=== PATIENT | male | born 1940 | race Two or more races ===

== ENCOUNTER 2018-07-20 12:14 | Inpatient (IN) | payer MEDICARE, OTHER ==
[2018-07-20] MEDS ORDERED: IPRATROPIUM/ALBUTEROL 0.5-2.5 MG/3 ML AMPUL NEB ONE (13:09)
--- NOTE | 2018-07-20 13:10 | ER Document Report ---
ED Medical Screen (RME) - General Chief Complaint: Cough Stated Complaint: COUGH Time Seen by Provider: 07/20/18 12:55 Primary Care Provider: KHADRA KNAPP MD [Primary Care Provider] - Follow up as needed Notes: Patient is a 77-year-old male that presents to the emergency department for chief complaint of shortness of breath and productive cough. Patient reports having symptoms for approximately 10 days, was seen a primary care office today and they advised him to come to the ED today.. ROS: Other than noted above, the 12 point review of systems was reviewed with the patient and were negative, all pertinent findings are included in the HPI. PHYSICAL EXAMINATION: Vital signs reviewed. GENERAL: Elderly male, mild increased work of breathing HEAD: Atraumatic, normocephalic. EYES: Pupils equal round extraocular movements intact, conjunctiva are normal. ENT: Nares patent NECK: Normal range of motion CV: Heart regular rate and rhythm LUNGS: Mild increased work of breathing, slight expiratory wheezing noted Musculoskeletal: Normal range of motion NEUROLOGICAL: Normal speech PSYCH: Normal mood, normal affect. MDM: Patient seen and examined for rapid initial assessment. Vital signs reviewed. A comprehensive ED assessment and evaluation of the patient, analysis of test results and completion of the medical decision making process will be conducted by additional ED providers. *Note is created using voice recognition software and may contain spelling, syntax or grammatical errors. TRAVEL OUTSIDE OF THE [place] IN LAST 30 DAYS: No - Related Data Allergies/Adverse Reactions: No Known Allergies Allergy (Verified 07/20/18 12:16) Past Medical History - Immunizations Hx Diphtheria, Pertussis, Tetanus Vaccination: No History of Influenza Vaccine for 03/2017 - 08/2017 Season: Refused Physical Exam - Vital signs Vitals: Temp Pulse Resp BP Pulse Ox 98.6 F 101 H 20 132/71 H 84 L 07/20/18 12:46 07/20/18 12:46 07/20/18 12:46 07/20/18 12:46 07/20/18 12:46 Course - Vital Signs Vital signs: Temp Pulse Resp BP Pulse Ox 98.6 F 101 H 20 132/71 H 84 L 07/20/18 12:46 07/20/18 12:46 07/20/18 12:46 07/20/18 12:46 02/06/19 12:46 Doctor's Discharge - Discharge Referrals: KHADRA KNAPP MD [Primary Care Provider] - Follow up as needed
--- NOTE | 2018-07-20 13:52 | RADIOLOGY REPORT (SQ) ---
EXAM DESCRIPTION: CHEST SINGLE VIEW COMPLETED DATE/TIME: 07/20/2018 1:38 pm REASON FOR STUDY: shortness of breath COMPARISON: None. EXAM PARAMETERS: NUMBER OF VIEWS: One view. TECHNIQUE: Single frontal radiographic view of the chest acquired. RADIATION DOSE: NA LIMITATIONS: None. FINDINGS: LUNGS AND PLEURA: Right perihilar parenchymal opacity. Slightly spiculated. Left lung is clear. MEDIASTINUM AND HILAR STRUCTURES: No masses. Contour normal. HEART AND VASCULAR STRUCTURES: Heart normal in size. Normal vasculature. BONES: No acute findings. HARDWARE: None in the chest. OTHER: No other significant finding. IMPRESSION: Right lung pneumonia versus mass. TECHNICAL DOCUMENTATION: JOB ID: [id number] [employer]- All Rights Reserved Reading location - IP/workstation name: [email or web address]
[2018-07-20] MEDS ORDERED: CEFTRIAXONE INJ 1000 MG VIAL IV ONE (13:56)
[2018-07-20] MEDS ORDERED: AZITHROMYCIN INJ 500 MG VIAL IV ONE (13:56)
[2018-07-20 14:07] LABS: HEMATOCRIT 28.1 % (37.9-51.0); MEAN CORPUSCULAR HEMOGLOBIN 33.9 pg (27.0-33.4); MEAN CORPUSCULAR HGB CONC 31.9 g/dL (32.0-36.0); MEAN CORPUSCULAR VOLUME 107 fl (80-97); RED BLOOD COUNT 2.64 10^6/uL (4.35-5.55); RED CELL DISTRIBUTION WIDTH 18.3 % (11.5-14.0); WHITE BLOOD COUNT 20.4 10^3/uL (4.0-10.5)
[2018-07-20 14:19] LABS: PLATELET COUNT 1104 10^3/uL (150-450)
[2018-07-20 14:28] LABS: ALANINE AMINOTRANSFERASE 12 U/L (21-72); ALBUMIN 4.1 g/dL (3.5-5.0); ALKALINE PHOSPHATASE 95 U/L (38-126); ANION GAP 11 (5-19); ASPARTATE AMINO TRANSFERASE 24 U/L (17-59); BILIRUBIN,DIRECT 0.4 mg/dL (0.0-0.4); BILIRUBIN,TOTAL 0.6 mg/dL (0.2-1.3); BLOOD UREA NITROGEN 18 mg/dL (7-20); CALCIUM 9.1 mg/dL (8.4-10.2); CARBON DIOXIDE 31 mmol/L (22-30); CHLORIDE 95 mmol/L (98-107); GLUCOSE 103 mg/dL (75-110); POTASSIUM 5.2 mmol/L (3.6-5.0); SODIUM 136.7 mmol/L (137-145); TOTAL PROTEIN 6.9 g/dL (6.3-8.2)
--- NOTE | 2018-07-20 14:39 | ER Document Report ---
ED General - General Chief Complaint: Cough Stated Complaint: COUGH Time Seen by Provider: 07/20/18 12:55 Primary Care Provider: KHADRA KNAPP MD [Primary Care Provider] - Follow up as needed TRAVEL OUTSIDE OF THE [place] IN LAST 30 DAYS: No - HPI Notes: Patient is a 77-year-old male that presents to the emergency department for chief complaint of cough and shortness of breath. Patient reports productive cough over the last week. He reports some mild associated nausea but denies any emesis or abdominal pain. He denies fevers or chills. He is up-to-date on his influenza vaccine. He states that he has 2 family members at home who are also congested and coughing. Patient denies any chest pain. He denies any home medications for his symptoms. Patient sees Dr. Vale for elevated platelet counts and denies history of cancer. Past Medical History: Thrombocytosis Past Surgical History: Reviewed in chart Social History: Daily tobacco. Denies drug and alcohol. Family History: Reviewed and noncontributory for presenting illness Allergies: Reviewed, see documented allergy list. REVIEW OF SYSTEMS: CONSTITUTIONAL : No fever No chills No diaphoresis No recent illness EENT: No vision changes congestion No sore throat CARDIOVASCULAR: No chest pain No palpitations RESPIRATORY: shortness of breath cough difficulty breathing GASTROINTESTINAL: No abdominal pain No nausea No vomiting No diarrhea GENITOURINARY: No dysuria No hematuria No difficulty urinating MUSCULOSKELETAL: No back pain No leg pain No arm pain SKIN: No rashes No lesions LYMPHATIC: No swollen, enlarged glands. NEUROLOGICAL: No lightheadedness No headache No weakness No paresthesias PSYCHIATRIC: No anxiety No depression PHYSICAL EXAMINATION: Vital signs reviewed, nursing noted reviewed. GENERAL: Well-appearing, well-nourished and in no acute distress. HEAD: Atraumatic, normocephalic. EYES: Eyes appear normal, extraocular movements intact, sclera anicteric, conjunctiva are normal. ENT: nares patent, oropharynx clear without exudates. Mildly dry mucous membranes. NECK: Normal range of motion, supple without lymphadenopathy LUNGS: Mild decreased lung sounds on the right compared to left. Mild tachypnea. No accessory muscle use or respiratory distress. HEART: Tachycardic rate and regular rhythm without murmurs ABDOMEN: Soft, nontender, normoactive bowel sounds. No rebound, guarding, or rigidity. No masses appreciated. EXTREMITIES: Nontender, good range of motion, no pitting or edema. NEUROLOGICAL: No focal neurological deficits. Moves all extremities spontaneously Motor and sensory grossly intact on exam. PSYCH: Normal mood, normal affect. SKIN: Warm, Dry, normal turgor, no rashes or lesions noted on exposed skin - Related Data Allergies/Adverse Reactions: No Known Allergies Allergy (Verified 07/20/18 12:16) Past Medical History - Social History Smoking Status: Current Every Day Smoker Frequency of alcohol use: None Drug Abuse: None Family History: Reviewed & Not Pertinent Patient has suicidal ideation: No Patient has homicidal ideation: No Renal/ Medical History: Denies: Hx Peritoneal Dialysis Past Surgical History: Reports: Hx Abdominal Surgery - hernia - Immunizations Hx Diphtheria, Pertussis, Tetanus Vaccination: No Physical Exam - Vital signs Vitals: Temp Pulse Resp BP Pulse Ox 98.6 F 101 H 20 132/71 H 84 L 07/20/18 12:46 07/20/18 12:46 07/20/18 12:46 07/20/18 12:46 07/20/18 12:46 Course - Re-evaluation Re-evalutation: 07/20/18 14:40 Vitals reviewed. Nursing notes reviewed. Patient was 84% on room air and placed on nasal cannula oxygen. He is oxygenating well on 2 L nasal cannula currently. He is in no acute respiratory distress. Chest x-ray shows right- sided pneumonia versus mass. Patient is symptomatic of pneumonia with a leukocytosis consistent with sepsis. He will be started on Rocephin and azithromycin. Patient given IV hydration. He will be admitted to the hospital for his pneumonia and oxygen requirement. Laboratory 07/20/18 07/20/18 13:46 13:46 WBC 20.4 H RBC 2.64 L Hgb 9.0 L Hct 28.1 L MCV 107 H MCH 33.9 H MCHC 31.9 L RDW 18.3 H Plt Count 1104 H* Seg Neutrophils % Not Reportable Lymphocytes % Not Reportable Monocytes % Not Reportable Eosinophils % Not Reportable Basophils % Not Reportable Absolute Neutrophils Not Reportable Absolute Lymphocytes Not Reportable Absolute Monocytes Not Reportable Absolute Eosinophils Not Reportable Absolute Basophils Not Reportable Sodium 136.7 L Potassium 5.2 H Chloride 95 L Carbon Dioxide 31 H Anion Gap 11 BUN 18 Creatinine 0.80 Est GFR ( Amer) > 60 Est GFR (Non-Af Amer) > 60 Glucose 103 Calcium 9.1 Total Bilirubin 0.6 Direct Bilirubin 0.4 Neonat Total Bilirubin Not Reportable Neonat Direct Bilirubin Not Reportable Neonat Indirect Bili Not Reportable AST 24 ALT 12 L Alkaline Phosphatase 95 Total Protein 6.9 Albumin 4.1 Chest X-Ray 07/20/18 13:09 IMPRESSION: Right lung pneumonia versus mass. 07/20/18 15:23 Patient's lab work shows a thrombocytosis which is higher than previous on record. This is what he has been seeing him on 4. He also has a leukocytosis and is meeting sepsis criteria. Patient has a normal lactate with no endorgan damage and is not in shock. Patient in agreement with admission. Case discussed with Alexsandra Guerrero THERMODYNAMICIST who accepts admission. - Vital Signs Vital signs: Temp Pulse Resp BP Pulse Ox 98.6 F 95 15 141/60 H 93 07/20/18 12:46 07/20/18 13:46 07/20/18 13:46 07/20/18 13:46 07/20/18 13:46 - Laboratory Result Diagrams: 07/20/18 13:46 07/20/18 13:46 Laboratory results interpreted by me: 07/20/18 07/20/18 13:46 13:46 WBC 20.4 H RBC 2.64 L Hgb 9.0 L Hct 28.1 L MCV 107 H MCH 33.9 H MCHC 31.9 L RDW 18.3 H Plt Count 1104 H* Seg Neuts % (Manual) 86 H Band Neutrophils % 1 L Lymphocytes % (Manual) 4 L Abs Neuts (Manual) 17.7 H Sodium 136.7 L Potassium 5.2 H Chloride 95 L Carbon Dioxide 31 H ALT 12 L - EKG Interpretation by Me Additional EKG results interpreted by me: 07/20/18 15:22 Interpreted by myself 06/17/2004: Sinus tachycardia, rate 106, normal axis, no ectopy, no STEMI Discharge - Discharge Clinical Impression: Thrombocytosis, Hypoxia Pneumonia Qualifiers: Pneumonia type: due to unspecified organism Laterality: right Lung location: middle lobe of lung Qualified Code(s): J18.1 - Lobar pneumonia, unspecified organism Sepsis Qualifiers: Sepsis type: sepsis due to unspecified organism Qualified Code(s): A41.9 - Sepsis, unspecified organism Condition: Stable Disposition: ADMITTED INPATIENT Admitting Provider: Hospitalist Unit Admitted: Telemetry Referrals: KHADRA KNAPP MD [Primary Care Provider] - Follow up as needed
[2018-07-20 14:40] LABS: ABSOLUTE LYMPHOCYTES# (MANUAL) 0.8 10^3/uL (0.5-4.7); ABSOLUTE NEUTROPHILS# (MANUAL) 17.7 10^3/uL (1.7-8.2); BAND NEUTROPHILS % (MANUAL) 1 % (3-5); BASOPHILS % (MANUAL) 1 % (0-2); EOSINOPHILS % (MANUAL) 3 % (0-6); LYMPHOCYTES % (MANUAL) 4 % (13-45); MONOCYTES % (MANUAL) 5 % (3-13); SEGMENTED NEUTROPHILS % (MAN) 86 % (42-78); TOTAL CELLS COUNTED 100
[2018-07-20 14:41] LABS: ANISOCYTOSIS 2+; OVALOCYTES 1+; PLATELET COMMENT INCREASED; POIKILOCYTOSIS 1+; POLYCHROMASIA SLIGHT
[2018-07-20] MEDS ORDERED: ONDANSETRON 4 MG TAB.RAPDIS PO PRN (16:07)
--- NOTE | 2018-07-20 16:36 | PDOC H&P ---
History of Present Illness Admission Date/PCP: 07/20/18 15:57 KHADRA KNAPP MD Patient complains of: COUGH & SOB History of Present Illness: MIRELA XIE is a 77 year old male with a PMH of thrombocytosis (followed by Dr. Mir), chronic back pain and DJD. Who presented to [facility] with a productive cough and SOB x 4 days. The patient denies any recent ill contacts. States he took Mucinex and Aleve for symptoms, but they offered no relief. Patient's daughter urged him to come to the emergency department today. Upon arrival to the emergency department she is vital signs were BP 132/71 HR 101 T 98.6 SPO2 84% RA. CXR reveals RML infiltrate. Laboratory studies indicative of leukocytosis (WBC 20), mild anemia and significant thrombocytosis (platelets >1100). Additionally, there is mild hyponatremia and hyperkalemia. All other laboratory studies relatively benign, including cardiac enzymes. EKG demonstrates sinus tachycardia. Upon assessment, the patient is resting comfortably in bed on supplemental oxygen. He is alert and oriented, able to answer all questions appropriately and without pause. Wheezing can be auscultated in all lung cedillo bilaterally. There is no evidence of central or peripheral cyanosis. Plan to admit to hospitalist service for IV antibiotic therapy. Past Medical History Musculoskeltal Medical History: Reports: Other - CHRONIC BACK PAIN. DJD. Hematology: Reports: Anemia Past Surgical History Past Surgical History: Reports: None Social History Information Source: Patient Lives with: Family Smoking Status: Current Every Day Smoker Cigarettes Packs Per Day: 1 Frequency of Alcohol Use: None Hx Recreational Drug Use: No Drugs: None Hx Prescription Drug Abuse: No - Advance Directive Resuscitation Status: Full Code Family History Family History: Reviewed & Not Pertinent Parental Family History Reviewed: Yes Children Family History Reviewed: Yes Sibling(s) Family History Reviewed.: Yes Medication/Allergy Home Medications: Naproxen Sodium [Aleve] 1 cap PO Q6 PRN 10/28/17 Allergies/Adverse Reactions: No Known Allergies Allergy (Verified 07/20/18 12:16) Review of Systems All systems: reviewed and no additional remarkable complaints except as stated Physical Exam Vital Signs: Temp Pulse Resp BP Pulse Ox 98.6 F 95 15 141/60 H 93 07/20/18 12:46 07/20/18 13:46 07/20/18 13:46 07/20/18 13:46 07/20/18 13:46 Intake & Output 07/19/18 07/20/18 07/21/18 06:59 06:59 06:59 Weight 51.5 kg General appearance: PRESENT: thin Eye exam: PRESENT: PERRLA, scleral icterus Mouth exam: PRESENT: moist, tongue midline Teeth exam: PRESENT: poor dentation Neck exam: PRESENT: full ROM Respiratory exam: PRESENT: symmetrical, unlabored, wheezes Cardiovascular exam: PRESENT: +S1, +S2 GI/Abdominal exam: PRESENT: soft. ABSENT: distended Rectal exam: PRESENT: deferred Extremities exam: PRESENT: full ROM Musculoskeletal exam: PRESENT: ambulatory, full ROM Neurological exam: PRESENT: alert, awake, oriented to person, oriented to place, oriented to time, oriented to situation Skin exam: PRESENT: dry, intact Results Laboratory Results: 07/20/18 13:46 07/20/18 13:46 07/20/18 07/20/18 07/20/18 13:46 13:46 14:15 WBC 20.4 H RBC 2.64 L Hgb 9.0 L Hct 28.1 L MCV 107 H MCH 33.9 H MCHC 31.9 L RDW 18.3 H Plt Count 1104 H* Seg Neutrophils % Not Reportable Lymphocytes % Not Reportable Monocytes % Not Reportable Eosinophils % Not Reportable Basophils % Not Reportable Absolute Neutrophils Not Reportable Absolute Lymphocytes Not Reportable Absolute Monocytes Not Reportable Absolute Eosinophils Not Reportable Absolute Basophils Not Reportable Sodium 136.7 L Potassium 5.2 H Chloride 95 L Carbon Dioxide 31 H Anion Gap 11 BUN 18 Creatinine 0.80 Est GFR ( Amer) > 60 Est GFR (Non-Af Amer) > 60 Glucose 103 Lactic Acid 0.8 Calcium 9.1 Total Bilirubin 0.6 AST 24 ALT 12 L Alkaline Phosphatase 95 Total Protein 6.9 Albumin 4.1 07/20/18 13:46 Troponin I < 0.012 Impressions: Chest X-Ray 07/20/18 13:09 IMPRESSION: Right lung pneumonia versus mass. Status: Imported from PACS Assessment & Plan - Diagnosis (1) Sepsis Qualifiers: Sepsis type: sepsis due to unspecified organism Qualified Code(s): A41.9 - Sepsis, unspecified organism Is this a current diagnosis for this admission?: Yes Plan: Secondary to pneumonia, present on admission, as evidenced by leukocytosis, tachycardia and tachypnea. CXR demonstrates RML PNA Lactate 0.8 Initiated IV antibiotics as empiric treatment for community-acquired pneumonia Maintenance IVF (2) Hypoxia Is this a current diagnosis for this admission?: Yes Plan: Secondary to PNA Supplemental oxygen via nasal cannula for SPO2>88% Patient endorses smoking. Approx. 40-50 year pack history CXR demonstrates chronic changes associated with emphysema/COPD as well as RML PNA (3) Pneumonia Qualifiers: Pneumonia type: due to unspecified organism Laterality: right Lung location: middle lobe of lung Qualified Code(s): J18.1 - Lobar pneumonia, unspecified organism Is this a current diagnosis for this admission?: Yes Plan: Community-acquired pneumonia Empiric antibiotic coverage with Rocephin and azithromycin Blood cultures pending Sputum culture ordered (4) Thrombocytosis Is this a current diagnosis for this admission?: Yes Plan: History of thrombocytosis Followed by Dr. Mir Will consult for recommendations - Time Time Spent: 30 to 50 Minutes Medications reviewed and adjusted accordingly: Yes Anticipated discharge: Home Within: within 72 hours - Inpatient Certification Based on my medical assessment, after consideration of the patient's comorbidities, presenting symptoms, or acuity I expect that the services needed warrant INPATIENT care.: Yes I certify that my determination is in accordance with my understanding of Medicare's requirements for reasonable and necessary INPATIENT services [42 CFR 412.3e].: Yes Medical Necessity: Need for IV Antibiotics - Plan Summary Plan Summary: IV ANTIBIOTICS. NEBULIZERS. MUCINEX
[2018-07-20] MEDS: ENOXAPARIN SODIUM INJ 40 MG/0.4 ML DISP.SYRIN SUBCUT SCH (17:55)
--- NOTE | 2018-07-20 23:04 | EKG REPORT ---
SEVERITY:- ABNORMAL ECG - SINUS TACHYCARDIA INDETERMINATE QRS AXIS LOW VOLTAGE IN FRONTAL LEADS : Confirmed by: Janina Medina 20-Jul-2018 23:03:17
[2018-07-20] MEDS: NORMAL SALINE 1000 ML 1,000 ML IV PRN (23:11)
[2018-07-21] MEDS ORDERED: METHYLPREDNISOLONE INJ 125 MG/2 ML SDV IV ONE (04:33)
[2018-07-21] MEDS ORDERED: LEVALBUTEROL HCL NEB 1.25 MG/3 ML AMPUL NEB PRN (04:34)
[2018-07-21] MEDS: GABAPENTIN 300 MG CAPSULE PO SCH ×4 (05:53→23:59)
[2018-07-21 06:29] LABS: HEMATOCRIT 25.4 % (37.9-51.0); HEMOGLOBIN 8.3 g/dL (13.5-17.0); MEAN CORPUSCULAR HEMOGLOBIN 34.6 pg (27.0-33.4); MEAN CORPUSCULAR HGB CONC 32.7 g/dL (32.0-36.0); MEAN CORPUSCULAR VOLUME 106 fl (80-97); PLATELET COUNT 783 10^3/uL (150-450); RED BLOOD COUNT 2.39 10^6/uL (4.35-5.55); RED CELL DISTRIBUTION WIDTH 17.9 % (11.5-14.0); WHITE BLOOD COUNT 22.1 10^3/uL (4.0-10.5)
[2018-07-21 06:43] LABS: ALANINE AMINOTRANSFERASE 22 U/L (21-72); ALBUMIN 3.5 g/dL (3.5-5.0); ALKALINE PHOSPHATASE 82 U/L (38-126); ANION GAP 10 (5-19); ASPARTATE AMINO TRANSFERASE 24 U/L (17-59); BILIRUBIN,DIRECT 0.3 mg/dL (0.0-0.4); BILIRUBIN,TOTAL 0.5 mg/dL (0.2-1.3); BLOOD UREA NITROGEN 16 mg/dL (7-20); CALCIUM 8.8 mg/dL (8.4-10.2); CARBON DIOXIDE 30 mmol/L (22-30); CHLORIDE 98 mmol/L (98-107); GLUCOSE 96 mg/dL (75-110); POTASSIUM 5.2 mmol/L (3.6-5.0); SODIUM 138.3 mmol/L (137-145)
[2018-07-21] MEDS: IPRATROPIUM/ALBUTEROL 0.5-2.5 MG/3 ML AMPUL NEB SCH ×3 (08:04→19:54)
[2018-07-21] MEDS: ACETAMINOPHEN 325 MG TABLET PO PRN (08:34)
[2018-07-21] MEDS: CEFTRIAXONE 1 GM/D5W RTU 1 GM/50 ML RTUPB IV SCH (09:36)
[2018-07-21] MEDS: METHYLPREDNISOLONE INJ 40 MG/1 ML SDV IV SCH ×2 (09:36→18:52)
[2018-07-21] MEDS: ENOXAPARIN SODIUM INJ 40 MG/0.4 ML DISP.SYRIN SUBCUT SCH (09:36)
[2018-07-21] MEDS ORDERED: RUXOLITINIB PHOSPHATE 10 MG PO SCH (10:00)
[2018-07-21] MEDS ORDERED: ENOXAPARIN SODIUM INJ 30 MG/0.3 ML DISP.SYRIN SUBCUT SCH (10:00)
[2018-07-21] MEDS: AZITHROMYCIN 500 MG in DEXTROSE 5%-WATER 250 ML IV SCH (10:23)
[2018-07-21] MEDS: NORMAL SALINE 1000 ML 1,000 ML IV PRN (15:19)
--- NOTE | 2018-07-21 21:30 | PDOC PROGRESS REPORT ---
Subjective Progress Note for:: 07/21/18 Subjective:: MIRELA XIE is a 77 year old male with a PMH of thrombocytosis (followed by Dr. Mir), chronic back pain and DJD. He was admitted to [facility] for RML community acquired PNA. The patient was seen resting in bed on supplemental O2. He is very sleepy but arousable. Answers questions appropriately. Lungs are clear to auscultation. No peripheral or central cyanosis. Nursing staff is concerned because the patient is not eating at all, the patient states he has no appetite. He is very small and thin in stature. Plan to continue IV ABX and add appetite stimulant. Reason For Visit: PNEUMONIA Physical Exam Vital Signs: Temp Pulse Resp BP Pulse Ox 98.4 F 97 16 131/64 H 97 07/21/18 19:59 07/21/18 19:59 07/21/18 19:59 07/21/18 19:59 07/21/18 19:59 Intake & Output 07/20/18 07/21/18 07/22/18 06:59 06:59 06:59 Intake Total 1621 Output Total 50 Balance 1571 Weight 51.5 kg General appearance: PRESENT: thin Eye exam: PRESENT: conjunctiva pink, PERRLA Mouth exam: PRESENT: moist, tongue midline Teeth exam: PRESENT: poor dentation Respiratory exam: PRESENT: clear to auscultation erinn, symmetrical, unlabored Cardiovascular exam: PRESENT: RRR, +S1, +S2 Pulses: PRESENT: normal radial pulses, normal dorsalis pedis pul GI/Abdominal exam: PRESENT: soft. ABSENT: distended, tenderness Rectal exam: PRESENT: deferred Extremities exam: PRESENT: full ROM. ABSENT: pedal edema Musculoskeletal exam: PRESENT: ambulatory, full ROM Neurological exam: PRESENT: alert, awake, oriented to person, oriented to place, oriented to time, oriented to situation Psychiatric exam: PRESENT: appropriate affect Skin exam: PRESENT: dry, intact, normal color Results Laboratory Results: 07/21/18 06:13 07/21/18 06:13 07/21/18 07/21/18 06:13 06:13 WBC 22.1 H RBC 2.39 L Hgb 8.3 L Hct 25.4 L MCV 106 H MCH 34.6 H MCHC 32.7 RDW 17.9 H Plt Count 783 H Sodium 138.3 Potassium 5.2 H Chloride 98 Carbon Dioxide 30 Anion Gap 10 BUN 16 Creatinine 0.74 Est GFR ( Amer) > 60 Est GFR (Non-Af Amer) > 60 Glucose 96 Calcium 8.8 Total Bilirubin 0.5 AST 24 ALT 22 Alkaline Phosphatase 82 Total Protein 6.0 L Albumin 3.5 07/20/18 07/21/18 13:46 06:13 Troponin I < 0.012 NT-Pro-B Natriuret Pep 1090 H Impressions: Chest X-Ray 07/20/18 13:09 IMPRESSION: Right lung pneumonia versus mass. Assessment & Plan - Diagnosis (1) Sepsis Qualifiers: Sepsis type: sepsis due to unspecified organism Qualified Code(s): A41.9 - Sepsis, unspecified organism Is this a current diagnosis for this admission?: Yes Plan: Improving Secondary to pneumonia, present on admission, as evidenced by leukocytosis, tachycardia and tachypnea. CXR demonstrates RML PNA Leukocytosis is slightly worse but overall clinical picture has improved - lungs are clear, wheezing has subsided Initiated IV antibiotics as empiric treatment for community-acquired pneumonia Maintenance IVF (2) Hypoxia Is this a current diagnosis for this admission?: Yes Plan: Secondary to PNA Supplemental oxygen via nasal cannula for SPO2>88% Patient endorses smoking. Approx. 40-50 year pack history CXR demonstrates chronic changes associated with emphysema/COPD as well as RML PNA (3) Pneumonia Qualifiers: Pneumonia type: due to unspecified organism Laterality: right Lung location: middle lobe of lung Qualified Code(s): J18.1 - Lobar pneumonia, unspecified organism Is this a current diagnosis for this admission?: Yes Plan: Community-acquired pneumonia Empiric antibiotic coverage with Rocephin and azithromycin Blood cultures pending Sputum culture ordered (4) Thrombocytosis Is this a current diagnosis for this admission?: Yes Plan: History of thrombocytosis Followed by Dr. Mir Will consult for recommendations - Time Time Spent with patient: 15-24 minutes Medications reviewed and adjusted accordingly: Yes Anticipated discharge: Home Within: within 72 hours - Inpatient Certification Based on my medical assessment, after consideration of the patient's comorbidities, presenting symptoms, or acuity I expect that the services needed warrant INPATIENT care.: Yes I certify that my determination is in accordance with my understanding of Medicare's requirements for reasonable and necessary INPATIENT services [42 CFR 412.3e].: Yes Medical Necessity: Need for IV Antibiotics
[2018-07-22] MEDS: METHYLPREDNISOLONE INJ 40 MG/1 ML SDV IV SCH ×3 (02:57→17:31)
[2018-07-22] MEDS: NORMAL SALINE 1000 ML 1,000 ML IV PRN ×2 (02:57→17:33)
[2018-07-22] MEDS: GABAPENTIN 300 MG CAPSULE PO SCH ×4 (05:22→23:08)
[2018-07-22] MEDS: IPRATROPIUM/ALBUTEROL 0.5-2.5 MG/3 ML AMPUL NEB SCH ×3 (07:51→20:26)
--- NOTE | 2018-07-22 08:24 | PDOC CONSULTATION ---
Consultation Consult Date: 07/22/18 Attending physician:: ANDREA AGUILAR Consult reason:: Asked by hospitalist team to see patient well-known to our oncology clinic with essential thrombocythemia History of Present Illness Admission Date/PCP: 07/20/18 15:57 KHADRA KNAPP MD Patient complains of: Cough, congestion, shortness of breath History of Present Illness: MIRELA XIE is a 77 year old male with known history of essential thrombocythemia, with elevated white count and platelet count, who has been on a drug called JAKAFI, now for about several months. He has had hemoglobin drop so we have had to extensively change dosing of that drug. Over the last 2-3 days he has had increasing cough, congestion, runny nose, ultimately he became shortness of breath and presented to the ED, here he was found to have evidence of bilateral pneumonia, and has been on appropriate spectrum antibiotics. We were consulted to evaluate his white count and platelet count. Past Medical History Musculoskeltal Medical History: Reports: Other - CHRONIC BACK PAIN. DJD. 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+ Past Surgical History Past Surgical History: Reports: None Social History Information Source: Patient Lives with: Family Smoking Status: Current Every Day Smoker Cigarettes Packs Per Day: 1 Cigars Per Day: 0 Pipes Per Day: 0 Number of Years Smokin Last Time Smoked: 07/20/2018 Frequency of Alcohol Use: None Hx Recreational Drug Use: No Drugs: None Hx Prescription Drug Abuse: No - Advance Directive Resuscitation Status: Full Code Family History Family History: Reviewed & Not Pertinent Parental Family History Reviewed: Yes Children Family History Reviewed: Yes Sibling(s) Family History Reviewed.: Yes Medication/Allergy Home Medications: Gabapentin [Neurontin 300 mg Capsule] 300 mg PO Q6 07/20/18 Naproxen Sodium [Aleve] 220 mg PO Q12HP PRN 07/20/18 Ruxolitinib Phosphate [Jakafi] 10 mg PO BID 07/20/18 Allergies/Adverse Reactions: No Known Allergies Allergy (Verified 07/20/18 12:16) Review of Systems Constitutional: ABSENT: chills, fever(s), headache(s), weight gain, weight loss Eyes: ABSENT: visual disturbances Ears: ABSENT: hearing changes Cardiovascular: ABSENT: chest pain, dyspnea on exertion, edema, orthropnea, palpitations Respiratory: ABSENT: cough, hemoptysis Gastrointestinal: ABSENT: abdominal pain, constipation, diarrhea, hematemesis, hematochezia, nausea, vomiting Genitourinary: ABSENT: dysuria, hematuria Musculoskeletal: ABSENT: joint swelling Integumentary: ABSENT: rash, wounds Neurological: ABSENT: abnormal gait, abnormal speech, confusion, dizziness, focal weakness, syncope Psychiatric: ABSENT: anxiety, depression, homidical ideation, suicidal ideation Endocrine: ABSENT: cold intolerance, heat intolerance, polydipsia, polyuria Hematologic/Lymphatic: ABSENT: easy bleeding, easy bruising Physical Exam Vital Signs: Temp Pulse Resp BP Pulse Ox 98.4 F 90 14 126/64 H 95 07/22/18 03:28 07/22/18 07:51 07/22/18 07:51 07/22/18 03:28 07/22/18 07:51 Intake & Output 07/21/18 07/22/18 07/23/18 06:59 06:59 06:59 Intake Total 3241 Output Total 200 Balance 3041 Weight 51.5 kg 50.9 kg General appearance: PRESENT: no acute distress, well-developed, well-nourished Head exam: PRESENT: atraumatic, normocephalic Eye exam: PRESENT: conjunctiva pink, EOMI, PERRLA. ABSENT: scleral icterus Ear exam: PRESENT: normal external ear exam Mouth exam: PRESENT: moist, tongue midline Neck exam: ABSENT: carotid bruit, JVD, lymphadenopathy, thyromegaly Respiratory exam: PRESENT: clear to auscultation erinn. ABSENT: rales, rhonchi, wheezes Cardiovascular exam: PRESENT: RRR. ABSENT: diastolic murmur, rubs, systolic murmur Pulses: PRESENT: normal dorsalis pedis pul Vascular exam: PRESENT: normal capillary refill GI/Abdominal exam: PRESENT: normal bowel sounds, soft. ABSENT: distended, guarding, mass, organolmegaly, rebound, tenderness Rectal exam: PRESENT: deferred Extremities exam: PRESENT: full ROM. ABSENT: calf tenderness, clubbing, pedal edema Neurological exam: PRESENT: alert, awake, oriented to person, oriented to place, oriented to time, oriented to situation, CN II-XII grossly intact. ABSENT: motor sensory deficit Psychiatric exam: PRESENT: appropriate affect, normal mood. ABSENT: homicidal ideation, suicidal ideation Skin exam: PRESENT: dry, intact, warm. ABSENT: cyanosis, rash Results Laboratory Results: 07/21/18 06:13 07/21/18 06:13 07/20/18 07/21/18 13:46 06:13 Troponin I < 0.012 NT-Pro-B Natriuret Pep 1090 H Impressions: Chest X-Ray 07/20/18 13:09 IMPRESSION: Right lung pneumonia versus mass. Assessment & Plan - Diagnosis (1) Pneumonia Qualifiers: Pneumonia type: due to unspecified organism Laterality: right Lung location: middle lobe of lung Qualified Code(s): J18.1 - Lobar pneumonia, unspecified organism Is this a current diagnosis for this admission?: Yes Plan: This is likely because of the slightly increased white count over his baseline, but even with resolution of the pneumonia his white count will remain somewhat elevated. Continue with current spectrum antibiotics. (2) Thrombocytosis Is this a current diagnosis for this admission?: Yes Plan: Will continue through hospitalization, he had been off the drug for a little bit longer than he should have because of awaiting the new dosing from the [facility]. That is probably the reason for the increase upon admission but also the increase could be because of the infection as platelets are an acute phase reactant. I would not worry too much about this, this will continue for him. (3) Anemia Qualifiers: Anemia type: other cause Other causes of anemia: antineoplastic chemotherapy Qualified Code(s): D64.81 - Anemia due to antineoplastic chemotherapy; T45.1X5A - Adverse effect of antineoplastic and immunosuppressive drugs, initial encounter Is this a current diagnosis for this admission?: Yes Plan: He does have some element of anemia of chronic disease, some element of anemia because of the oral chemotherapeutic that he is on, unfortunately all the oral chemotherapeutics used for essential thrombocythemia can appropriately cause a decrease in platelet counts, but also can cause a subsequent decrease in hemoglobin and this is been many patients difficulty in optimizing dose. If his hemoglobin were to drop below 7 will transfuse 1 unit of packed red blood cells. - Time Time Spent: Greater than 70 Minutes - Inpatient Certification Based on my medical assessment, after consideration of the patient's co morbidities, presenting symptoms, or acuity I expect that the services needed warrant INPATIENT care.: Yes I certify that my determination is in accordance with my understanding of Medicare's requirements for reasonable and necessary INPATIENT services [42 CFR 412.3e].: Yes Medical Necessity: Need For Continuous Telemetry Monitoring, Need for Nebulizer Therapy and Monitoring of Response, Risk of Complication if Not Cared For in Hospital
[2018-07-22] MEDS: CEFTRIAXONE 1 GM/D5W RTU 1 GM/50 ML RTUPB IV SCH (10:19)
[2018-07-22] MEDS: ENOXAPARIN SODIUM INJ 40 MG/0.4 ML DISP.SYRIN SUBCUT SCH (10:19)
[2018-07-22] MEDS: AZITHROMYCIN 500 MG in DEXTROSE 5%-WATER 250 ML IV SCH (11:12)
[2018-07-22] MEDS: ACETAMINOPHEN 325 MG TABLET PO PRN (11:23)
[2018-07-22 15:31] LABS: HEMATOCRIT 25.4 % (37.9-51.0); MEAN CORPUSCULAR HGB CONC 31.6 g/dL (32.0-36.0); MEAN CORPUSCULAR VOLUME 108 fl (80-97); PLATELET COUNT 730 10^3/uL (150-450); RED BLOOD COUNT 2.37 10^6/uL (4.35-5.55); RED CELL DISTRIBUTION WIDTH 18.8 % (11.5-14.0)
[2018-07-22] MEDS: ASPIRIN 81 MG TABLET, ENT COATED PO SCH (15:31)
[2018-07-22] MEDS: MEGESTROL ACETATE 20 MG TABLET PO SCH (15:31)
[2018-07-22 15:49] LABS: ALANINE AMINOTRANSFERASE 26 U/L (21-72); ALBUMIN 3.6 g/dL (3.5-5.0); ALKALINE PHOSPHATASE 87 U/L (38-126); ANION GAP 11 (5-19); ASPARTATE AMINO TRANSFERASE 40 U/L (17-59); BILIRUBIN,DIRECT 0.2 mg/dL (0.0-0.4); BILIRUBIN,TOTAL 0.2 mg/dL (0.2-1.3); BLOOD UREA NITROGEN 28 mg/dL (7-20); CALCIUM 8.3 mg/dL (8.4-10.2); CARBON DIOXIDE 26 mmol/L (22-30); CHLORIDE 98 mmol/L (98-107); GLUCOSE 198 mg/dL (75-110); POTASSIUM 4.9 mmol/L (3.6-5.0); SODIUM 135.4 mmol/L (137-145); TOTAL PROTEIN 6.1 g/dL (6.3-8.2)
[2018-07-22 16:03] LABS: WHITE BLOOD COUNT 47.9 10^3/uL (4.0-10.5)
[2018-07-22 18:36] LABS: HEMATOCRIT 24.8 % (37.9-51.0); MEAN CORPUSCULAR HEMOGLOBIN 34.3 pg (27.0-33.4); MEAN CORPUSCULAR HGB CONC 31.6 g/dL (32.0-36.0); MEAN CORPUSCULAR VOLUME 108 fl (80-97); PLATELET COUNT 676 10^3/uL (150-450); RED BLOOD COUNT 2.29 10^6/uL (4.35-5.55); RED CELL DISTRIBUTION WIDTH 18.5 % (11.5-14.0)
[2018-07-22 19:03] LABS: ABSOLUTE LYMPHOCYTES# (MANUAL) 1.5 10^3/uL (0.5-4.7); ABSOLUTE MONOCYTES # (MANUAL) 2.5 10^3/uL (0.1-1.4); ABSOLUTE NEUTROPHILS# (MANUAL) 45.3 10^3/uL (1.7-8.2); BASOPHILS % (MANUAL) 0 % (0-2); EOSINOPHILS % (MANUAL) 0 % (0-6); LYMPHOCYTES % (MANUAL) 3 % (13-45); MONOCYTES % (MANUAL) 5 % (3-13); SEGMENTED NEUTROPHILS % (MAN) 92 % (42-78); TOTAL CELLS COUNTED 100
[2018-07-22 19:05] LABS: ANISOCYTOSIS 2+; PLATELET COMMENT INCREASED; POIKILOCYTOSIS 1+; TOXIC GRANULATION SLIGHT
[2018-07-22 19:34] LABS: HEMOGLOBIN 7.9 g/dL (13.5-17.0); WHITE BLOOD COUNT 49.2 10^3/uL (4.0-10.5)
--- NOTE | 2018-07-22 20:11 | PDOC PROGRESS REPORT ---
Subjective Progress Note for:: 07/22/18 Subjective:: MIRELA XIE is a 77 year old male with a PMH of thrombocytosis (followed by Dr. Mir), chronic back pain and DJD. He was admitted to [facility] for RML community acquired PNA. The patient was seen resting in bed on supplemental O2. He is awake, A&O x 3. Answers questions appropriately without pause. Lungs are clear to auscultation. No peripheral or central cyanosis. The patient's CBC was significantly different than yesterday, asked lab to re-draw. Currently awaiting results. Plan to continue IV ABX. Reason For Visit: PNEUMONIA Physical Exam Vital Signs: Temp Pulse Resp BP Pulse Ox 98.5 F 95 17 112/51 L 97 07/22/18 15:30 07/22/18 15:30 07/22/18 15:30 07/22/18 15:30 07/22/18 15:30 Intake & Output 07/21/18 07/22/18 07/23/18 06:59 06:59 06:59 Intake Total 3241 1935 Output Total 200 100 Balance 3041 1835 Weight 51.5 kg 50.9 kg General appearance: PRESENT: thin Eye exam: PRESENT: conjunctiva pink, PERRLA Mouth exam: PRESENT: moist, tongue midline Neck exam: PRESENT: full ROM Respiratory exam: PRESENT: clear to auscultation erinn, symmetrical, unlabored Cardiovascular exam: PRESENT: RRR Pulses: PRESENT: normal radial pulses, normal dorsalis pedis pul Vascular exam: PRESENT: normal capillary refill GI/Abdominal exam: PRESENT: soft, other - anorexia. ABSENT: distended, tenderness Rectal exam: PRESENT: deferred Extremities exam: PRESENT: full ROM. ABSENT: pedal edema Musculoskeletal exam: PRESENT: ambulatory, full ROM Neurological exam: PRESENT: alert, awake, oriented to person, oriented to place, oriented to time, oriented to situation Psychiatric exam: PRESENT: appropriate affect Skin exam: PRESENT: dry, intact, normal color Results Laboratory Results: 07/22/18 17:56 07/22/18 14:55 07/22/18 07/22/18 07/22/18 14:55 14:55 16:50 WBC 47.9 H* D Cancelled RBC 2.37 L Cancelled Hgb 8.0 L Cancelled Hct 25.4 L Cancelled MCV 108 H Cancelled MCH 34.0 H Cancelled MCHC 31.6 L Cancelled RDW 18.8 H Cancelled Plt Count 730 H Cancelled Seg Neutrophils % Cancelled Lymphocytes % Cancelled Monocytes % Cancelled Eosinophils % Cancelled Basophils % Cancelled Absolute Neutrophils Cancelled Absolute Lymphocytes Cancelled Absolute Monocytes Cancelled Absolute Eosinophils Cancelled Absolute Basophils Cancelled Sodium 135.4 L Potassium 4.9 Chloride 98 Carbon Dioxide 26 Anion Gap 11 BUN 28 H Creatinine 1.04 Est GFR ( Amer) > 60 Est GFR (Non-Af Amer) > 60 Glucose 198 H Calcium 8.3 L Magnesium 2.2 Total Bilirubin 0.2 AST 40 ALT 26 Alkaline Phosphatase 87 Total Protein 6.1 L Albumin 3.6 07/22/18 17:56 WBC 49.2 H* RBC 2.29 L Hgb 7.9 L Hct 24.8 L MCV 108 H MCH 34.3 H MCHC 31.6 L RDW 18.5 H Plt Count 676 H Seg Neutrophils % Not Reportable Lymphocytes % Not Reportable Monocytes % Not Reportable Eosinophils % Not Reportable Basophils % Not Reportable Absolute Neutrophils Not Reportable Absolute Lymphocytes Not Reportable Absolute Monocytes Not Reportable Absolute Eosinophils Not Reportable Absolute Basophils Not Reportable Sodium Potassium Chloride Carbon Dioxide Anion Gap BUN Creatinine Est GFR ( Amer) Est GFR (Non-Af Amer) Glucose Calcium Magnesium Total Bilirubin AST ALT Alkaline Phosphatase Total Protein Albumin 07/20/18 07/21/18 13:46 06:13 Troponin I < 0.012 NT-Pro-B Natriuret Pep 1090 H Impressions: Chest X-Ray 07/20/18 13:09 IMPRESSION: Right lung pneumonia versus mass. Status: Imported from PACS Assessment & Plan - Diagnosis (1) Sepsis Qualifiers: Sepsis type: sepsis due to unspecified organism Qualified Code(s): A41.9 - Sepsis, unspecified organism Is this a current diagnosis for this admission?: Yes Plan: Improving Secondary to pneumonia, present on admission, as evidenced by leukocytosis, tachycardia and tachypnea. CXR demonstrates RML PNA Clinical picture has improved - lungs are clear, wheezing has subsided Initiated IV antibiotics as empiric treatment for community-acquired pneumonia Maintenance IVF (2) Hypoxia Is this a current diagnosis for this admission?: Yes Plan: Secondary to PNA Supplemental oxygen via nasal cannula for SPO2>88% Patient endorses smoking. Approx. 40-50 year pack history CXR demonstrates chronic changes associated with emphysema/COPD as well as RML PNA Encourage ambulation while on O2 if unable to wean (3) Pneumonia Qualifiers: Pneumonia type: due to unspecified organism Laterality: right Lung location: middle lobe of lung Qualified Code(s): J18.1 - Lobar pneumonia, unspecified organism Is this a current diagnosis for this admission?: Yes Plan: Community-acquired pneumonia Empiric antibiotic coverage with Rocephin and azithromycin Blood cultures pending Sputum culture ordered (4) Thrombocytosis Is this a current diagnosis for this admission?: Yes Plan: History of thrombocytosis Followed by Dr. Mir Will consult for recommendations Aspirin 81mg PO daily - Time Time Spent with patient: 15-24 minutes Medications reviewed and adjusted accordingly: Yes Anticipated discharge: Home Within: within 48 hours - Inpatient Certification Based on my medical assessment, after consideration of the patient's comorbidities, presenting symptoms, or acuity I expect that the services needed warrant INPATIENT care.: Yes I certify that my determination is in accordance with my understanding of Medicare's requirements for reasonable and necessary INPATIENT services [42 CFR 412.3e].: Yes Medical Necessity: Need for IV Antibiotics
[2018-07-23] MEDS: NORMAL SALINE 1000 ML 1,000 ML IV PRN (01:50)
[2018-07-23] MEDS: METHYLPREDNISOLONE INJ 40 MG/1 ML SDV IV SCH ×3 (01:50→18:03)
[2018-07-23] MEDS: GABAPENTIN 300 MG CAPSULE PO SCH ×3 (05:01→18:03)
[2018-07-23 07:46] LABS: ANION GAP 7 (5-19); BLOOD UREA NITROGEN 31 mg/dL (7-20); CALCIUM 8.5 mg/dL (8.4-10.2); CARBON DIOXIDE 29 mmol/L (22-30); CHLORIDE 103 mmol/L (98-107); GLUCOSE 135 mg/dL (75-110); PHOSPHORUS 4.1 mg/dL (2.5-4.5); SODIUM 138.8 mmol/L (137-145)
[2018-07-23 08:02] LABS: POTASSIUM 5.9 mmol/L (3.6-5.0)
[2018-07-23] MEDS: IPRATROPIUM/ALBUTEROL 0.5-2.5 MG/3 ML AMPUL NEB SCH ×3 (08:31→20:41)
[2018-07-23] MEDS: MEGESTROL ACETATE 20 MG TABLET PO SCH (10:10)
[2018-07-23] MEDS: ENOXAPARIN SODIUM INJ 40 MG/0.4 ML DISP.SYRIN SUBCUT SCH (10:10)
[2018-07-23] MEDS: ASPIRIN 81 MG TABLET, ENT COATED PO SCH (10:10)
[2018-07-23] MEDS: NICOTINE 14 MG/24 HR PATCH.TD24 TD SCH (10:10)
[2018-07-23] MEDS: CEFTRIAXONE 1 GM/D5W RTU 1 GM/50 ML RTUPB IV SCH (10:10)
[2018-07-23] MEDS: AZITHROMYCIN 500 MG in DEXTROSE 5%-WATER 250 ML IV SCH (11:41)
[2018-07-23] MEDS ORDERED: SODIUM POLYSTYRENE SULFONATE 15 GM/60 ML PO ONE (13:00)
[2018-07-23] MEDS ORDERED: PATIROMER 8.4 GM SUSP PACKET PO ONE (15:00)
[2018-07-23 15:17] LABS: MEAN CORPUSCULAR HEMOGLOBIN 34.1 pg (27.0-33.4); MEAN CORPUSCULAR HGB CONC 31.5 g/dL (32.0-36.0); MEAN CORPUSCULAR VOLUME 108 fl (80-97); PLATELET COUNT 702 10^3/uL (150-450); RED BLOOD COUNT 2.31 10^6/uL (4.35-5.55); RED CELL DISTRIBUTION WIDTH 18.5 % (11.5-14.0)
[2018-07-23 15:22] LABS: HEMOGLOBIN 7.9 g/dL (13.5-17.0)
--- NOTE | 2018-07-23 19:25 | PDOC PROGRESS REPORT ---
Subjective Progress Note for:: 07/23/18 Subjective:: MRIELA XIE is a 77 year old male with a PMH of thrombocytosis (followed by Dr. Mir), chronic back pain and DJD. He was admitted to [facility] for RML community acquired PNA. The patient was seen resting in bed on supplemental O2. He is awake, A&O x 3. Answers questions appropriately without pause. Mild rhonci heard over the RML and RLL. No peripheral or central cyanosis. The patient's CBC was significantly different than yesterday (WBC 22-->41). Discussed with Heme/Onc, Dr. Weeks. She expressed that this is an acute phase reaction to the patient's PNA in the setting of his primary thrombocytosis. There is no treatment/testing to do at this time. Plan to continue IV ABX, ambulate, wean O2. If patient's clinical picture continues to improve, may d/c home within 24-48 hours. Reason For Visit: PNEUMONIA Physical Exam Vital Signs: Temp Pulse Resp BP Pulse Ox 98.5 F 97 16 130/63 H 93 07/23/18 16:00 07/23/18 16:00 07/23/18 16:00 07/23/18 16:00 07/23/18 16:00 Intake & Output 07/22/18 07/23/18 07/24/18 06:59 06:59 06:59 Intake Total 3241 3400 1418 Output Total 200 350 Balance 3041 3050 1418 Weight 50.9 kg 52.2 kg General appearance: PRESENT: no acute distress, thin Head exam: PRESENT: atraumatic Eye exam: PRESENT: conjunctiva pink, PERRLA Mouth exam: PRESENT: moist, tongue midline Neck exam: PRESENT: full ROM Respiratory exam: PRESENT: rhonchi - RML, symmetrical, unlabored Cardiovascular exam: PRESENT: RRR Pulses: PRESENT: normal radial pulses, normal dorsalis pedis pul Vascular exam: PRESENT: normal capillary refill GI/Abdominal exam: PRESENT: soft. ABSENT: distended Rectal exam: PRESENT: deferred Extremities exam: PRESENT: full ROM Musculoskeletal exam: PRESENT: ambulatory, full ROM, normal inspection Neurological exam: PRESENT: alert, awake, oriented to person, oriented to place, oriented to time, oriented to situation Psychiatric exam: PRESENT: appropriate affect Skin exam: PRESENT: dry, intact, normal color Results Laboratory Results: 07/23/18 14:26 07/23/18 06:48 07/22/18 07/23/18 07/23/18 17:56 06:48 14:26 WBC 49.2 H* 47.0 H* RBC 2.29 L 2.31 L Hgb 7.9 L 7.9 L Hct 24.8 L 25.0 L MCV 108 H 108 H MCH 34.3 H 34.1 H MCHC 31.6 L 31.5 L RDW 18.5 H 18.5 H Plt Count 676 H 702 H Sodium 138.8 Potassium 5.9 H D Chloride 103 Carbon Dioxide 29 Anion Gap 7 BUN 31 H Creatinine 0.92 Est GFR ( Amer) > 60 Est GFR (Non-Af Amer) > 60 Glucose 135 H Calcium 8.5 Phosphorus 4.1 Magnesium 2.5 H 07/20/18 07/21/18 13:46 06:13 Troponin I < 0.012 NT-Pro-B Natriuret Pep 1090 H Impressions: Chest X-Ray 07/20/18 13:09 IMPRESSION: Right lung pneumonia versus mass. Status: Imported from PACS Assessment & Plan - Diagnosis (1) Sepsis Qualifiers: Sepsis type: sepsis due to unspecified organism Qualified Code(s): A41.9 - Sepsis, unspecified organism Is this a current diagnosis for this admission?: Yes Plan: Improving Secondary to pneumonia, present on admission, as evidenced by leukocytosis, tachycardia and tachypnea. CXR demonstrates RML PNA Clinical picture has improved - lungs are clear, wheezing has subsided. Rhonci heard over RML Continue IV antibiotics as empiric treatment for community-acquired pneumonia d/c maintenance IVF since patient is eating and drinking (2) Hypoxia Is this a current diagnosis for this admission?: Yes Plan: Secondary to PNA Supplemental oxygen via nasal cannula for SPO2>88% Patient endorses smoking. Approx. 40-50 year pack history CXR demonstrates chronic changes associated with emphysema/COPD as well as RML PNA Encourage ambulation and use of IS (3) Pneumonia Qualifiers: Pneumonia type: due to unspecified organism Laterality: right Lung location: middle lobe of lung Qualified Code(s): J18.1 - Lobar pneumonia, unspecified organism Is this a current diagnosis for this admission?: Yes Plan: Community-acquired pneumonia Lobar infiltrate in RML Empiric antibiotic coverage with Rocephin and azithromycin Blood cultures negative at 72 hours Sputum culture ordered (4) Thrombocytosis Is this a current diagnosis for this admission?: Yes Plan: History of thrombocytosis Followed by Dr. Mir Aspirin 81mg PO daily No plan for further treatment at this time (5) Leukocytosis Qualifiers: Leukocytosis type: other Qualified Code(s): D72.828 - Other elevated white blood cell count Is this a current diagnosis for this admission?: Yes Plan: Acute phase reaction to PNA in setting of primary thrombocytosis Discussed with HEME/ONC No further treatment Clinical picture is actually improving (6) Hyperkalemia Is this a current diagnosis for this admission?: Yes Plan: Unclear etiology PO [place] Daily chemistry Continuous cardiac telemetry - Time Time Spent with patient: 15-24 minutes Medications reviewed and adjusted accordingly: Yes Anticipated discharge: Home Within: within 48 hours - Inpatient Certification Based on my medical assessment, after consideration of the patient's comorbidities, presenting symptoms, or acuity I expect that the services needed warrant INPATIENT care.: Yes I certify that my determination is in accordance with my understanding of Medicare's requirements for reasonable and necessary INPATIENT services [42 CFR 412.3e].: Yes Medical Necessity: Need For Continuous Telemetry Monitoring, Need for IV Antibiotics
[2018-07-24] MEDS: GABAPENTIN 300 MG CAPSULE PO SCH ×4 (00:50→17:59)
[2018-07-24] MEDS: METHYLPREDNISOLONE INJ 40 MG/1 ML SDV IV SCH ×3 (01:08→17:59)
[2018-07-24 05:24] LABS: ANION GAP 7 (5-19); BLOOD UREA NITROGEN 32 mg/dL (7-20); CALCIUM 8.2 mg/dL (8.4-10.2); CARBON DIOXIDE 28 mmol/L (22-30); CHLORIDE 102 mmol/L (98-107); GLUCOSE 143 mg/dL (75-110); PHOSPHORUS 3.5 mg/dL (2.5-4.5); POTASSIUM 5.6 mmol/L (3.6-5.0)
[2018-07-24] MEDS: IPRATROPIUM/ALBUTEROL 0.5-2.5 MG/3 ML AMPUL NEB SCH ×3 (07:52→21:38)
[2018-07-24] MEDS: NICOTINE 14 MG/24 HR PATCH.TD24 TD SCH (09:47)
[2018-07-24] MEDS: CEFTRIAXONE 1 GM/D5W RTU 1 GM/50 ML RTUPB IV SCH (09:47)
[2018-07-24] MEDS: ASPIRIN 81 MG TABLET, ENT COATED PO SCH (09:47)
[2018-07-24] MEDS: MEGESTROL ACETATE 20 MG TABLET PO SCH (09:48)
[2018-07-24] MEDS: ENOXAPARIN SODIUM INJ 40 MG/0.4 ML DISP.SYRIN SUBCUT SCH (09:48)
[2018-07-24] MEDS: AZITHROMYCIN 500 MG in DEXTROSE 5%-WATER 250 ML IV SCH (10:32)
[2018-07-24 15:18] LABS: HEMATOCRIT 25.8 % (37.9-51.0); HEMOGLOBIN 8.2 g/dL (13.5-17.0); MEAN CORPUSCULAR HEMOGLOBIN 33.8 pg (27.0-33.4); MEAN CORPUSCULAR HGB CONC 31.8 g/dL (32.0-36.0); MEAN CORPUSCULAR VOLUME 106 fl (80-97); PLATELET COUNT 960 10^3/uL (150-450); RED BLOOD COUNT 2.43 10^6/uL (4.35-5.55); RED CELL DISTRIBUTION WIDTH 18.1 % (11.5-14.0)
[2018-07-24 15:40] LABS: WHITE BLOOD COUNT 38.7 10^3/uL (4.0-10.5)
--- NOTE | 2018-07-24 22:14 | PDOC PROGRESS REPORT ---
Subjective Progress Note for:: 07/24/18 Subjective:: MIRELA XIE is a 77 year old male with a PMH of thrombocytosis (followed by Dr. Mir), chronic back pain and DJD. He was admitted to [facility] for RML community acquired PNA. The patient was seen resting in bed on supplemental O2. He is awake, A&O x 3. Answers questions appropriately without pause. Mild rhonci heard over the RML and RLL. No peripheral or central cyanosis. Attempted to ambulate patient without nasal cannula and his SPO2 dropped to 79%. Plan to continue IV ABX, ambulate, mucinex,steroids. Stressed the importance of using the incentive spirometer. If patient's clinical picture continues to improve, may d/c home within 24-48 hours. Reason For Visit: PNEUMONIA Physical Exam Vital Signs: Temp Pulse Resp BP Pulse Ox 98.1 F 91 18 134/65 H 91 L 07/24/18 19:10 07/24/18 21:38 07/24/18 21:38 07/24/18 19:10 07/24/18 21:38 Intake & Output 07/23/18 07/24/18 07/25/18 06:59 06:59 06:59 Intake Total 3400 1598 2064 Output Total 350 200 Balance 3050 1398 2064 Weight 52.2 kg 51.9 kg General appearance: PRESENT: no acute distress, thin Eye exam: PRESENT: PERRLA Mouth exam: PRESENT: moist, tongue midline Neck exam: PRESENT: full ROM Respiratory exam: PRESENT: clear to auscultation erinn, rhonchi - over RML, symmetrical, unlabored Cardiovascular exam: PRESENT: RRR Pulses: PRESENT: normal radial pulses, normal dorsalis pedis pul Vascular exam: PRESENT: normal capillary refill GI/Abdominal exam: PRESENT: soft. ABSENT: distended, tenderness Rectal exam: PRESENT: deferred Extremities exam: PRESENT: full ROM. ABSENT: pedal edema Musculoskeletal exam: PRESENT: ambulatory, full ROM Neurological exam: PRESENT: alert, awake, oriented to person, oriented to place, oriented to time, oriented to situation Psychiatric exam: PRESENT: appropriate affect Skin exam: PRESENT: dry, intact, normal color Results Laboratory Results: 07/24/18 14:30 07/24/18 03:47 07/24/18 07/24/18 03:47 14:30 WBC 38.7 H* RBC 2.43 L Hgb 8.2 L Hct 25.8 L MCV 106 H MCH 33.8 H MCHC 31.8 L RDW 18.1 H Plt Count 960 H Sodium 137.0 Potassium 5.6 H Chloride 102 Carbon Dioxide 28 Anion Gap 7 BUN 32 H Creatinine 0.90 Est GFR ( Amer) > 60 Est GFR (Non-Af Amer) > 60 Glucose 143 H Calcium 8.2 L Phosphorus 3.5 Magnesium 2.4 H 07/20/18 07/21/18 13:46 06:13 Troponin I < 0.012 NT-Pro-B Natriuret Pep 1090 H Impressions: Chest X-Ray 07/20/18 13:09 IMPRESSION: Right lung pneumonia versus mass. Status: Imported from PACS Assessment & Plan - Diagnosis (1) Sepsis Qualifiers: Sepsis type: sepsis due to unspecified organism Qualified Code(s): A41.9 - Sepsis, unspecified organism Is this a current diagnosis for this admission?: Yes Plan: Improving Secondary to pneumonia, present on admission, as evidenced by leukocytosis, tachycardia and tachypnea. CXR demonstrates RML PNA Clinical picture has improved - lungs are mostly clear, wheezing has subsided. Rhonci still heard over RML Continue IV antibiotics as empiric treatment for community-acquired pneumonia d/c maintenance IVF since patient is eating and drinking (2) Hypoxia Is this a current diagnosis for this admission?: Yes Plan: Secondary to PNA Supplemental oxygen via nasal cannula for SPO2>88% Patient endorses smoking. Approx. 40-50 year pack history CXR demonstrates chronic changes associated with emphysema/COPD as well as RML PNA Encourage ambulation and use of IS (3) Pneumonia Qualifiers: Pneumonia type: due to unspecified organism Laterality: right Lung location: middle lobe of lung Qualified Code(s): J18.1 - Lobar pneumonia, unspecified organism Is this a current diagnosis for this admission?: Yes Plan: Community-acquired pneumonia Lobar infiltrate in RML Empiric antibiotic coverage with Rocephin and azithromycin Blood cultures negative at 72 hours Sputum culture ordered (4) Thrombocytosis Is this a current diagnosis for this admission?: Yes Plan: History of thrombocytosis Followed by Dr. Mir Aspirin 81mg PO daily No plan for further treatment at this time (5) Leukocytosis Qualifiers: Leukocytosis type: other Qualified Code(s): D72.828 - Other elevated white blood cell count Is this a current diagnosis for this admission?: Yes Plan: Acute phase reaction to PNA in setting of primary thrombocytosis Discussed with HEME/ONC No further treatment Clinical picture is actually improving (6) Hyperkalemia Is this a current diagnosis for this admission?: Yes Plan: Unclear etiology PO [place] Daily chemistry Continuous cardiac telemetry - Time Time Spent with patient: 15-24 minutes Medications reviewed and adjusted accordingly: Yes Anticipated discharge: Home Within: within 48 hours - Inpatient Certification Based on my medical assessment, after consideration of the patient's comorbidities, presenting symptoms, or acuity I expect that the services needed warrant INPATIENT care.: Yes I certify that my determination is in accordance with my understanding of Medicare's requirements for reasonable and necessary INPATIENT services [42 CFR 412.3e].: Yes Medical Necessity: Need for IV Antibiotics - Plan Summary Plan Summary: CONTINUE TO AMBULATE WITH O2. IS. MUCINEX. ABX. STEROIDS. NEBS
[2018-07-25] MEDS: METHYLPREDNISOLONE INJ 40 MG/1 ML SDV IV SCH ×3 (01:32→18:12)
[2018-07-25] MEDS: GABAPENTIN 300 MG CAPSULE PO SCH ×4 (01:32→18:11)
[2018-07-25] MEDS: IPRATROPIUM/ALBUTEROL 0.5-2.5 MG/3 ML AMPUL NEB SCH ×3 (08:24→20:29)
--- NOTE | 2018-07-25 08:51 | PDOC PROGRESS REPORT ---
Subjective Progress Note for:: 07/25/18 Subjective:: Patient does get hypoxic on room air, new diagnosis of emphysema/COPD, will need home O2 being worked out form Reason For Visit: PNEUMONIA Physical Exam Vital Signs: Temp Pulse Resp BP Pulse Ox 98.1 F 95 18 122/58 L 84 L 07/25/18 03:45 07/25/18 08:26 07/25/18 08:26 07/25/18 03:45 07/25/18 08:26 Intake & Output 07/24/18 07/25/18 07/26/18 06:59 06:59 06:59 Intake Total 1598 2182 Output Total 200 Balance 1398 2182 Weight 51.9 kg 52.8 kg General appearance: PRESENT: no acute distress, well-developed, well-nourished Head exam: PRESENT: atraumatic, normocephalic Eye exam: PRESENT: conjunctiva pink, EOMI, PERRLA. ABSENT: scleral icterus Ear exam: PRESENT: normal external ear exam Mouth exam: PRESENT: moist, tongue midline Neck exam: ABSENT: carotid bruit, JVD, lymphadenopathy, thyromegaly Respiratory exam: PRESENT: clear to auscultation erinn. ABSENT: rales, rhonchi, wheezes Cardiovascular exam: PRESENT: RRR. ABSENT: diastolic murmur, rubs, systolic murmur Pulses: PRESENT: normal dorsalis pedis pul Vascular exam: PRESENT: normal capillary refill GI/Abdominal exam: PRESENT: normal bowel sounds, soft. ABSENT: distended, guarding, mass, organolmegaly, rebound, tenderness Rectal exam: PRESENT: deferred Extremities exam: PRESENT: full ROM. ABSENT: calf tenderness, clubbing, pedal edema Neurological exam: PRESENT: alert, awake, oriented to person, oriented to place, oriented to time, oriented to situation, CN II-XII grossly intact. ABSENT: motor sensory deficit Psychiatric exam: PRESENT: appropriate affect, normal mood. ABSENT: homicidal ideation, suicidal ideation Skin exam: PRESENT: dry, intact, warm. ABSENT: cyanosis, rash Results Laboratory Results: 07/24/18 14:30 07/24/18 03:47 07/24/18 14:30 WBC 38.7 H* RBC 2.43 L Hgb 8.2 L Hct 25.8 L MCV 106 H MCH 33.8 H MCHC 31.8 L RDW 18.1 H Plt Count 960 H 07/20/18 07/21/18 13:46 06:13 Troponin I < 0.012 NT-Pro-B Natriuret Pep 1090 H Impressions: Chest X-Ray 07/20/18 13:09 IMPRESSION: Right lung pneumonia versus mass. Assessment & Plan - Diagnosis (1) Pneumonia Qualifiers: Pneumonia type: due to unspecified organism Laterality: right Lung location: middle lobe of lung Qualified Code(s): J18.1 - Lobar pneumonia, unspecified organism Is this a current diagnosis for this admission?: Yes Plan: Improved, will need antibiotic on DC (2) Thrombocytosis Is this a current diagnosis for this admission?: Yes Plan: Continue as an outpatient with current treatment plan (3) Anemia Qualifiers: Anemia type: other cause Other causes of anemia: antineoplastic chemotherapy Qualified Code(s): D64.81 - Anemia due to antineoplastic chemotherapy; T45.1X5A - Adverse effect of antineoplastic and immunosuppressive drugs, initial encounter Is this a current diagnosis for this admission?: Yes Plan: Hemoglobin stable continue to monitor - Time Time Spent with patient: 35 or more minutes
[2018-07-25] MEDS: ASPIRIN 81 MG TABLET, ENT COATED PO SCH (09:25)
[2018-07-25] MEDS: NICOTINE 14 MG/24 HR PATCH.TD24 TD SCH (09:26)
[2018-07-25] MEDS: ENOXAPARIN SODIUM INJ 40 MG/0.4 ML DISP.SYRIN SUBCUT SCH (09:26)
[2018-07-25] MEDS: RUXOLITINIB PHOSPHATE 15 MG PO SCH ×2 (09:26→18:12)
[2018-07-25] MEDS: MEGESTROL ACETATE 20 MG TABLET PO SCH (09:27)
[2018-07-25] MEDS: CEFTRIAXONE 1 GM/D5W RTU 1 GM/50 ML RTUPB IV SCH (09:27)
[2018-07-25] MEDS ORDERED: RUXOLITINIB PHOSPHATE 10 MG PO SCH (10:00)
[2018-07-25] MEDS: AZITHROMYCIN 500 MG in DEXTROSE 5%-WATER 250 ML IV SCH (10:56)
[2018-07-25] MEDS ORDERED: IPRATROPIUM/ALBUTEROL 0.5-2.5 MG/3 ML AMPUL NEB ONE (13:21)
[2018-07-25 13:50] LABS: PATH REVIEW PATHOLOGIST REVIEWED
[2018-07-25] MEDS: GUAIFENESIN 600 MG TABLET.SA PO SCH ×2 (14:58→22:01)
[2018-07-25] MEDS: TIOTROPIUM BROMIDE DPI 5 CAP/KIT (18 MCG/CAP) IH SCH (14:58)
[2018-07-25] MEDS ORDERED: ONDANSETRON 4 MG TAB.RAPDIS PO PRN (15:00)
[2018-07-25] MEDS: SALMETEROL XINAFOATE DISKUS 50 MCG/1 DOSE 28 DOSE IH SCH (18:12)
--- NOTE | 2018-07-25 21:35 | PDOC PROGRESS REPORT ---
Subjective Progress Note for:: 07/25/18 Subjective:: MIRELA XIE is a 77 year old male with a PMH of thrombocytosis (followed by Dr. Mir), chronic back pain and DJD. He was admitted to [facility] for RML community acquired PNA. The patient was seen resting in bed on supplemental O2. He is awake, A&O x 3. Answers questions appropriately without pause. Lungs clear to auscultation. No peripheral or central cyanosis. Attempted to ambulate patient without nasal cannula and his SPO2 dropped to 86%. Plan to continue IV ABX, ambulate, mucinex,steroids. Stressed the importance of using the incentive spirometer. If patient's clinical picture continues to improve, may d/c home within 24-48 hours. If not, may need to send home on O2. Reason For Visit: PNEUMONIA Physical Exam Vital Signs: Temp Pulse Resp BP Pulse Ox 98.5 F 97 17 132/78 H 95 07/25/18 19:15 07/25/18 19:15 07/25/18 19:15 07/25/18 19:15 07/25/18 19:15 Intake & Output 07/24/18 07/25/18 07/26/18 06:59 06:59 06:59 Intake Total 1598 2182 877 Output Total 200 Balance 1398 2182 877 Weight 51.9 kg 52.8 kg General appearance: PRESENT: no acute distress, thin Head exam: PRESENT: atraumatic Eye exam: PRESENT: PERRLA Mouth exam: PRESENT: moist, tongue midline Neck exam: PRESENT: full ROM Respiratory exam: PRESENT: clear to auscultation erinn, symmetrical, unlabored Cardiovascular exam: PRESENT: RRR Pulses: PRESENT: normal radial pulses, normal dorsalis pedis pul Vascular exam: PRESENT: normal capillary refill GI/Abdominal exam: PRESENT: soft. ABSENT: distended, tenderness Rectal exam: PRESENT: deferred Extremities exam: PRESENT: full ROM. ABSENT: pedal edema Musculoskeletal exam: PRESENT: ambulatory, full ROM, normal inspection Neurological exam: PRESENT: alert, awake, oriented to person, oriented to place, oriented to time, oriented to situation Psychiatric exam: PRESENT: appropriate affect Skin exam: PRESENT: dry, intact Results Laboratory Results: 07/24/18 14:30 07/24/18 03:47 07/20/18 15:40 Blood Blood Culture - Final NO GROWTH IN 5 DAYS 07/20/18 14:15 Blood Blood Culture - Final NO GROWTH IN 5 DAYS 07/20/18 07/21/18 13:46 06:13 Troponin I < 0.012 NT-Pro-B Natriuret Pep 1090 H Impressions: Chest X-Ray 07/20/18 13:09 IMPRESSION: Right lung pneumonia versus mass. Status: Imported from PACS Assessment & Plan - Diagnosis (1) Sepsis Qualifiers: Sepsis type: sepsis due to unspecified organism Qualified Code(s): A41.9 - Sepsis, unspecified organism Is this a current diagnosis for this admission?: Yes Plan: Improving Secondary to pneumonia, present on admission, as evidenced by leukocytosis, tachycardia and tachypnea. CXR demonstrates RML PNA Clinical picture has improved - lungs are mostly clear, wheezing has subsided. Continue IV antibiotics as empiric treatment for community-acquired pneumonia d/c maintenance IVF since patient is eating and drinking (2) Hypoxia Is this a current diagnosis for this admission?: Yes Plan: Secondary to PNA Supplemental oxygen via nasal cannula for SPO2>88% Patient endorses smoking. Approx. 40-50 year pack history CXR demonstrates chronic changes associated with emphysema/COPD as well as RML PNA Encourage ambulation and use of IS Unable to wean from O2 today. Patient is able to ambulate without difficulty but his SPO2 drops to 70-80%. Talked to the patient about possibly going home with O2. The patient states he would rather stay in the hospital and receive treatment in hopes of weaning from O2 (3) Pneumonia Qualifiers: Pneumonia type: due to unspecified organism Laterality: right Lung location: middle lobe of lung Qualified Code(s): J18.1 - Lobar pneumonia, unspecified organism Is this a current diagnosis for this admission?: Yes Plan: Community-acquired pneumonia Lobar infiltrate in RML Empiric antibiotic coverage with Rocephin and azithromycin Blood cultures negative Sputum culture ordered (4) Thrombocytosis Is this a current diagnosis for this admission?: Yes Plan: History of thrombocytosis Followed by Dr. Mir Aspirin 81mg PO daily No plan for further treatment at this time (5) Leukocytosis Qualifiers: Leukocytosis type: other Qualified Code(s): D72.828 - Other elevated white blood cell count Is this a current diagnosis for this admission?: Yes Plan: Acute phase reaction to PNA in setting of primary thrombocytosis Discussed with HEME/ONC No further treatment Clinical picture is actually improving (6) Hyperkalemia Is this a current diagnosis for this admission?: Yes Plan: Unclear etiology ASHER Tatum Daily chemistry Continuous cardiac telemetry - Time Time Spent with patient: 15-24 minutes Medications reviewed and adjusted accordingly: Yes - Inpatient Certification Based on my medical assessment, after consideration of the patient's comorbidities, presenting symptoms, or acuity I expect that the services needed warrant INPATIENT care.: Yes I certify that my determination is in accordance with my understanding of Medicare's requirements for reasonable and necessary INPATIENT services [42 CFR 412.3e].: Yes Medical Necessity: Need for IV Antibiotics - Plan Summary Plan Summary: CONTINUE ABX, NEBS, MUCINEX, INHALERS. POSSIBILITY OF GOING HOME ON O2
[2018-07-26] MEDS: GABAPENTIN 300 MG CAPSULE PO SCH ×5 (00:16→23:24)
[2018-07-26] MEDS: METHYLPREDNISOLONE INJ 40 MG/1 ML SDV IV SCH ×2 (00:17→05:17)
[2018-07-26] MEDS: SALMETEROL XINAFOATE DISKUS 50 MCG/1 DOSE 28 DOSE IH SCH ×2 (05:16→18:48)
[2018-07-26 05:26] LABS: HEMATOCRIT 23.5 % (37.9-51.0); MEAN CORPUSCULAR HEMOGLOBIN 34.7 pg (27.0-33.4); MEAN CORPUSCULAR HGB CONC 32.7 g/dL (32.0-36.0); MEAN CORPUSCULAR VOLUME 106 fl (80-97); PLATELET COUNT 990 10^3/uL (150-450); RED BLOOD COUNT 2.22 10^6/uL (4.35-5.55); RED CELL DISTRIBUTION WIDTH 18.4 % (11.5-14.0)
[2018-07-26 05:48] LABS: ANION GAP 7 (5-19); BLOOD UREA NITROGEN 39 mg/dL (7-20); CALCIUM 8.1 mg/dL (8.4-10.2); CARBON DIOXIDE 30 mmol/L (22-30); CHLORIDE 96 mmol/L (98-107); GLUCOSE 110 mg/dL (75-110); HEMOGLOBIN 7.7 g/dL (13.5-17.0); PHOSPHORUS 5.2 mg/dL (2.5-4.5); SODIUM 133.1 mmol/L (137-145)
[2018-07-26 05:52] LABS: POTASSIUM 6.3 mmol/L (3.6-5.0)
[2018-07-26 05:57] LABS: WHITE BLOOD COUNT 43.1 10^3/uL (4.0-10.5)
[2018-07-26] MEDS ORDERED: SODIUM BICARBONATE 8.4% INJ 50 MEQ/50 ML DISP.SYRIN IV ONE (08:00)
[2018-07-26] MEDS ORDERED: INSULIN REG, HUMAN 100 UNIT/ML 3 ML VIAL (PYX) IV ONE ×2 (08:00→15:00)
[2018-07-26] MEDS ORDERED: DEXTROSE 50%-WATER 25 GM/50 ML DISP.SYRIN IV ONE ×3 (08:00→23:00)
[2018-07-26] MEDS: IPRATROPIUM/ALBUTEROL 0.5-2.5 MG/3 ML AMPUL NEB SCH ×3 (08:10→20:08)
[2018-07-26] MEDS: TIOTROPIUM BROMIDE DPI 5 CAP/KIT (18 MCG/CAP) IH SCH (10:25)
[2018-07-26] MEDS: RUXOLITINIB PHOSPHATE 15 MG PO SCH ×2 (10:25→21:12)
[2018-07-26] MEDS: ENOXAPARIN SODIUM INJ 40 MG/0.4 ML DISP.SYRIN SUBCUT SCH (10:25)
[2018-07-26] MEDS: NICOTINE 14 MG/24 HR PATCH.TD24 TD SCH (10:26)
[2018-07-26] MEDS: CEFTRIAXONE 1 GM/D5W RTU 1 GM/50 ML RTUPB IV SCH (10:26)
[2018-07-26] MEDS: GUAIFENESIN 600 MG TABLET.SA PO SCH ×2 (10:27→21:10)
[2018-07-26] MEDS: ASPIRIN 81 MG TABLET, ENT COATED PO SCH (10:27)
[2018-07-26] MEDS: MEGESTROL ACETATE 20 MG TABLET PO SCH (10:27)
[2018-07-26] MEDS: AZITHROMYCIN 500 MG in DEXTROSE 5%-WATER 250 ML IV SCH (11:25)
[2018-07-26 12:59] LABS: ANION GAP 11 (5-19); BLOOD UREA NITROGEN 42 mg/dL (7-20); CALCIUM 8.6 mg/dL (8.4-10.2); CARBON DIOXIDE 29 mmol/L (22-30); CHLORIDE 95 mmol/L (98-107); GLUCOSE 186 mg/dL (75-110); SODIUM 135.3 mmol/L (137-145)
[2018-07-26 13:05] LABS: POTASSIUM 6.9 mmol/L (3.6-5.0)
[2018-07-26] MEDS ORDERED: NORMAL SALINE 1000 ML 1,000 ML IV PRN (13:39)
[2018-07-26] MEDS ORDERED: METHYLPREDNISOLONE INJ 40 MG/1 ML SDV IV SCH (14:00)
[2018-07-26] MEDS ORDERED: PATIROMER 8.4 GM SUSP PACKET PO SCH (15:00)
[2018-07-26] MEDS ORDERED: FUROSEMIDE INJ/PF 20 MG/2 ML SDV IV ONE (15:00)
[2018-07-26] MEDS ORDERED: CALCIUM GLUCONATE 1000 MG/10 ML INJ IV ONE ×2 (16:00→23:00)
--- NOTE | 2018-07-26 17:16 | PDOC PROGRESS REPORT ---
Subjective Progress Note for:: 07/26/18 Subjective:: MIRELA XIE is a 77 year old male with a PMH of thrombocytosis (followed by Dr. Mir), chronic back pain and DJD. He was admitted to [facility] for RML community acquired PNA. The patient was seen on afternoon rounds. He is found resting in bed comfortably on room air. He reports that his dyspnea has resolved and he was able to ambulate in the hallway today without difficulty. He denies fever, chills, headache, dizziness, chest pain, palpitations, dyspnea, orthopnea, abdominal pain, nausea vomiting diarrhea, muscle cramps. He has no new questions or concerns. No concerns per nursing. Reason For Visit: PNEUMONIA Physical Exam Vital Signs: Temp Pulse Resp BP Pulse Ox 97.4 F 89 15 128/58 H 97 07/26/18 15:36 07/26/18 15:36 07/26/18 15:36 07/26/18 15:36 07/26/18 15:36 Intake & Output 07/25/18 07/26/18 07/27/18 06:59 06:59 06:59 Intake Total 2182 977 780 Balance 2182 977 780 Weight 52.8 kg 50.9 kg General appearance: PRESENT: no acute distress, cooperative, thin, well- developed Head exam: PRESENT: atraumatic, normocephalic Eye exam: PRESENT: conjunctiva pink, EOMI, PERRLA. ABSENT: scleral icterus Ear exam: PRESENT: normal external ear exam Mouth exam: PRESENT: moist, tongue midline Neck exam: ABSENT: carotid bruit, JVD, lymphadenopathy, thyromegaly Respiratory exam: PRESENT: clear to auscultation erinn, symmetrical, unlabored. ABSENT: rales, rhonchi, wheezes Cardiovascular exam: PRESENT: RRR. ABSENT: diastolic murmur, rubs, systolic murmur Pulses: PRESENT: normal dorsalis pedis pul Vascular exam: PRESENT: normal capillary refill GI/Abdominal exam: PRESENT: normal bowel sounds, soft. ABSENT: distended, guarding, mass, organolmegaly, rebound, tenderness Rectal exam: PRESENT: deferred Extremities exam: PRESENT: full ROM. ABSENT: calf tenderness, clubbing, pedal edema Neurological exam: PRESENT: alert, awake, oriented to person, oriented to place, oriented to time, oriented to situation, CN II-XII grossly intact. ABSENT: motor sensory deficit Psychiatric exam: PRESENT: appropriate affect, normal mood. ABSENT: homicidal ideation, suicidal ideation Skin exam: PRESENT: dry, intact, warm. ABSENT: cyanosis, rash Results Laboratory Results: 07/26/18 04:02 07/26/18 11:35 07/26/18 07/26/18 07/26/18 04:02 04:02 11:35 WBC 43.1 H* RBC 2.22 L Hgb 7.7 L Hct 23.5 L MCV 106 H MCH 34.7 H MCHC 32.7 RDW 18.4 H Plt Count 990 H Sodium 133.1 L 135.3 L Potassium 6.3 H* 6.9 H* Chloride 96 L 95 L Carbon Dioxide 30 29 Anion Gap 7 11 BUN 39 H 42 H Creatinine 0.92 1.04 Est GFR ( Amer) > 60 > 60 Est GFR (Non-Af Amer) > 60 > 60 Glucose 110 186 H Calcium 8.1 L 8.6 Phosphorus 5.2 H Magnesium 2.3 07/20/18 15:40 Blood Blood Culture - Final NO GROWTH IN 5 DAYS 07/20/18 14:15 Blood Blood Culture - Final NO GROWTH IN 5 DAYS 07/20/18 07/21/18 13:46 06:13 Troponin I < 0.012 NT-Pro-B Natriuret Pep 1090 H Impressions: Chest X-Ray 07/20/18 13:09 IMPRESSION: Right lung pneumonia versus mass. Assessment & Plan - Diagnosis (1) Sepsis Qualifiers: Sepsis type: sepsis due to unspecified organism Qualified Code(s): A41.9 - Sepsis, unspecified organism Is this a current diagnosis for this admission?: Yes Plan: Resolved. Secondary to pneumonia, present on admission, as evidenced by leukocytosis, tachycardia and tachypnea. CXR demonstrates RML PNA Blood cultures have no growth The patient was empirically treated with IV Rocephin and azithromycin for treatment of a community-acquired pneumonia; antibiotics discontinued on day #7 as patient has been afebrile with clinical improvement >48 hours. 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 No indications for continued antibiotics at this time. (2) Hyperkalemia Is this a current diagnosis for this admission?: Yes Plan: Unclear etiology; possibly related to thrombocytopenia, lymphocytosis, or Lovenox use. Attempts to correct with IV calcium gluconate, D5, Insulin, Bicarb, albuterol nebs, and lactulose. Continue PO Veltassa; dose increase by nephrology. Serial chemistry NS x1 L Continuous cardiac telemetry Nephrology is consulted; appreciate Dr. Levi's evaluation and recommendations. (3) Hypoxia Is this a current diagnosis for this admission?: Yes Plan: Resolved; now maintaining oxygen saturations while ambulatory on room air. Secondary to PNA and COPD exacerbation CXR demonstrates chronic changes associated with emphysema/COPD as well as RML PNA Supplemental oxygen via nasal cannula for SPO2>88% IV Solu-Medrol; have begun weaning Serevent, Spiriva, nebulizers as needed. Encourage ambulation and use of IS (4) Leukocytosis Qualifiers: Leukocytosis type: other Qualified Code(s): D72.828 - Other elevated white blood cell count Is this a current diagnosis for this admission?: Yes Plan: Acute phase reaction to PNA in setting of primary thrombocytosis and IV steroids for COPD exacerbation. Discussed with HEME/ONC No further treatment Clinical picture is improving; no indications for further antibiotics. Continue to monitor. (5) Pneumonia Qualifiers: Pneumonia type: due to unspecified organism Laterality: right Lung location: middle lobe of lung Qualified Code(s): J18.1 - Lobar pneumonia, unspecified organism Is this a current diagnosis for this admission?: Yes Plan: Community-acquired pneumonia Lobar infiltrate in RML Blood cultures negative Sputum culture ordered Empiric antibiotic coverage with Rocephin and azithromycin; has completed a 7- day course of therapy. (6) Thrombocytosis Is this a current diagnosis for this admission?: Yes Plan: History of thrombocytosis Followed by Dr. Mir Aspirin 81mg PO daily No plan for further treatment at this time (7) Anemia Qualifiers: Anemia type: other cause Other causes of anemia: antineoplastic chemotherapy Qualified Code(s): D64.81 - Anemia due to antineoplastic chemotherapy; T45.1X5A - Adverse effect of antineoplastic and immunosuppressive drugs, initial encounter Is this a current diagnosis for this admission?: Yes Plan: Chronic; likely myeloproliferative disorder as patient has chronic thrombocytopenia now with leukocytosis. Hemoglobin 9.0 on admission; has trended down to 7.7. Appears to be at baseline. No indications of active bleeding. Will continue to monitor. - Time Time Spent with patient: 25-34 minutes Medications reviewed and adjusted accordingly: Yes
[2018-07-26] MEDS ORDERED: PATIROMER 8.4 GM SUSP PACKET PO ONE (18:00)
--- NOTE | 2018-07-26 20:51 | PDOC CONSULTATION ---
Consultation Consult Date: 07/26/18 Attending physician:: GERBER ALVAREZ Consult reason:: I was asked to see the patient due to persistent hyperkalemia. History of Present Illness Admission Date/PCP: 07/20/18 15:57 KHADRA KNAPP MD History of Present Illness: MIRELA XIE is a 77 year old male with history of thrombocytosis, leukocytosis, chronic back pain admitted on 07/20/18 right middle lobe pneumonia, sepsis and pneumonia. Patient has been treated with IV antibiotics and is currently improving from current diagnosis. Recently patient has been having persistent and worsening hyperkalemia. On admission he came in with potassium of 5.2. On July 23 potassium went up to 5.9 and today it went up to 6.9. Patient has normal kidney function. Patient was given regular insulin, bicar bonate calcium gluconate, and just about a couple hours ago Lasix intravenously. Patient admits that he has been drinking prune juice last week while here in the hospital eating gupta tomatoes and drinking Ensure. Clinically the patient is feeling fine denies any more shortness of breath or coughing. He denies problems. He denies having any issues with hyperkalemia in the past. Past Medical History Musculoskeltal Medical History: Reports: Other - CHRONIC BACK PAIN. DJD. Hematology Medical History: Reports Anemia Hematology History Note: Essential thrombocytosis Past Surgical History Past Surgical History: Reports: None Social History Information Source: Patient Lives with: Family - Lives with daughter and grandson Smoking Status: Current Every Day Smoker Cigarettes Packs Per Day: 1 Cigars Per Day: 0 Pipes Per Day: 0 Number of Years Smokin Last Time Smoked: 07/20/2018 Frequency of Alcohol Use: None Hx Recreational Drug Use: No Drugs: None Hx Prescription Drug Abuse: No - Advance Directive Resuscitation Status: Full Code Family History Family History: CAD - Other, DM - Father, Hypertension - Father Parental Family History Reviewed: Yes Children Family History Reviewed: Yes Sibling(s) Family History Reviewed.: Yes Medication/Allergy Home Medications: Gabapentin [Neurontin 300 mg Capsule] 300 mg PO Q6 07/20/18 Naproxen Sodium [Aleve] 220 mg PO Q12HP PRN 07/20/18 Ruxolitinib Phosphate [Jakafi] 10 mg PO BID 07/20/18 Allergies/Adverse Reactions: No Known Allergies Allergy (Verified 07/20/18 12:16) Review of Systems All systems: reviewed and no additional remarkable complaints except as stated Review of Systems: Constitutional: ABSENT: chills, fatigue, fever(s), headache(s), weight gain, weight loss Eyes: ABSENT: visual disturbances Ears: ABSENT: hearing changes Cardiovascular: ABSENT: chest pain, dyspnea on exertion, edema, orthropnea, palpitations Respiratory: ABSENT: cough, dyspnea, hemoptysis Gastrointestinal: ABSENT: abdominal pain, constipation, diarrhea, hematemesis, hematochezia, nausea, vomiting Genitourinary: ABSENT: dysuria, hematuria; urinary incontinence Musculoskeletal: ABSENT: joint swelling Integumentary: ABSENT: rash, wounds Neurological: ABSENT: abnormal gait, abnormal speech, confusion, dizziness, focal weakness, numbness, syncope Psychiatric: ABSENT: anxiety, depression Endocrine: ABSENT: cold intolerance, heat intolerance, polydipsia, polyuria Hematologic/Lymphatic: ABSENT: easy bleeding, easy bruising, lymphadenopathy Physical Exam Vital Signs: Temp Pulse Resp BP Pulse Ox 97.4 F 89 18 128/58 H 96 07/26/18 15:36 07/26/18 20:10 07/26/18 20:10 07/26/18 15:36 07/26/18 20:10 Intake & Output 07/25/18 07/26/18 07/27/18 06:59 06:59 06:59 Intake Total 2182 977 1406 Balance 2182 977 1406 Weight 52.8 kg 50.9 kg Exam: General appearance: No acute distress, cooperative, well-developed, well- nourished Head exam: PRESENT: atraumatic, normocephalic Eye exam: PRESENT: Conjunctiva [place], EOMI, PERRLA. ABSENT: conjunctival injection, scleral icterus Mouth exam: PRESENT: moist, neck supple, tongue midline Neck exam: PRESENT: full ROM. ABSENT: carotid bruit, JVD, lymphadenopathy, thyromegaly Respiratory exam: PRESENT: clear to auscultation bilaterally. ABSENT: rales, rhonchi, stridor, wheezes Cardiovascular exam: PRESENT: RRR, +S1, +S2. ABSENT: systolic murmur Pulses: PRESENT: normal radial pulses, normal dorsalis pedis pulses GI/Abdominal exam: PRESENT: normal bowel sounds, soft. ABSENT: guarding, mass, tenderness Rectal exam: Deferred Extremities exam: PRESENT: full ROM. ABSENT: calf tenderness, pedal edema Musculoskeletal: PRESENT: full ROM. ABSENT: deformity Neurological exam: PRESENT: alert, Awake, Oriented to person, Oriented to place, Oriented to time, reflexes normal, CN II-XII grossly intact. ABSENT: motor sensory deficit Psychiatric exam: PRESENT: appropriate affect, normal mood. ABSENT: homicidal ideation, suicidal ideation Skin exam: PRESENT: intact, dry, warm. ABSENT: rash Results Laboratory Results: 07/26/18 04:02 07/26/18 11:35 07/26/18 07/26/18 07/26/18 04:02 04:02 11:35 WBC 43.1 H* RBC 2.22 L Hgb 7.7 L Hct 23.5 L MCV 106 H MCH 34.7 H MCHC 32.7 RDW 18.4 H Plt Count 990 H Sodium 133.1 L 135.3 L Potassium 6.3 H* 6.9 H* Chloride 96 L 95 L Carbon Dioxide 30 29 Anion Gap 7 11 BUN 39 H 42 H Creatinine 0.92 1.04 Est GFR ( Amer) > 60 > 60 Est GFR (Non-Af Amer) > 60 > 60 Glucose 110 186 H Calcium 8.1 L 8.6 Phosphorus 5.2 H Magnesium 2.3 07/20/18 15:40 Blood Blood Culture - Final NO GROWTH IN 5 DAYS 07/20/18 07/21/18 13:46 06:13 Troponin I < 0.012 NT-Pro-B Natriuret Pep 1090 H Impressions: Chest X-Ray 07/20/18 13:09 IMPRESSION: Right lung pneumonia versus mass. Assessment & Plan - Diagnosis (1) Hyperkalemia Is this a current diagnosis for this admission?: Yes Plan: Cause is most likely multifactorial which includes thrombocytosis, leukocytosis, medications including Lovenox, and potassium intake. I agree with giving the patient regular insulin, sodium bicarbonate, calcium gluconate, Lasix. Will increase the veltassa dose today to 25.2 g x1 dose. Discontinue Lovenox and replaced with Arixtra 2.5 mg subcutaneously. Advised patient regarding low potassium diet. Repeat potassium levels. (2) Pneumonia Qualifiers: Pneumonia type: due to unspecified organism Laterality: right Lung location: middle lobe of lung Qualified Code(s): J18.1 - Lobar pneumonia, unspecified organism Is this a current diagnosis for this admission?: Yes (3) Anemia Qualifiers: Anemia type: other cause Other causes of anemia: antineoplastic chemotherapy Qualified Code(s): D64.81 - Anemia due to antineoplastic chemotherapy; T45.1X5A - Adverse effect of antineoplastic and immunosuppressive drugs, initial encounter Is this a current diagnosis for this admission?: Yes (4) Thrombocytosis Is this a current diagnosis for this admission?: Yes (5) Leukocytosis Qualifiers: Leukocytosis type: other Qualified Code(s): D72.828 - Other elevated white blood cell count Is this a current diagnosis for this admission?: Yes - Notes Notes: Thank you very much for this consultation. - Time Time Spent: 50 to 70 Minutes
[2018-07-26] MEDS ORDERED: LACTULOSE SYRUP 20 GM/30 ML UDCUP PO ONE (22:30)
[2018-07-26] MEDS ORDERED: INSULIN REG, HUMAN 100 UNIT/ML 3 ML VIAL IV ONE (23:00)
[2018-07-26] MEDS ORDERED: FUROSEMIDE INJ/PF 40 MG/4 ML SDV IV ONE (23:00)
[2018-07-26] MEDS ORDERED: INSULIN REG, HUMAN 100 UNIT/ML 3 ML VIAL (PYX) ONE (23:15)
[2018-07-27] MEDS ORDERED: METHYLPREDNISOLONE INJ 40 MG/1 ML SDV IV SCH
[2018-07-27 04:49] LABS: HEMATOCRIT 24.8 % (37.9-51.0); MEAN CORPUSCULAR HGB CONC 31.6 g/dL (32.0-36.0); MEAN CORPUSCULAR VOLUME 104 fl (80-97); RED BLOOD COUNT 2.37 10^6/uL (4.35-5.55); RED CELL DISTRIBUTION WIDTH 18.6 % (11.5-14.0)
[2018-07-27 05:06] LABS: ANION GAP 8 (5-19); BLOOD UREA NITROGEN 42 mg/dL (7-20); CALCIUM 9.3 mg/dL (8.4-10.2); CARBON DIOXIDE 34 mmol/L (22-30); CHLORIDE 95 mmol/L (98-107); GLUCOSE 91 mg/dL (75-110); SODIUM 136.7 mmol/L (137-145)
[2018-07-27 05:10] LABS: POTASSIUM 6.5 mmol/L (3.6-5.0)
[2018-07-27 05:18] LABS: HEMOGLOBIN 7.8 g/dL (13.5-17.0); PLATELET COUNT 1292 10^3/uL (150-450); WHITE BLOOD COUNT 50.7 10^3/uL (4.0-10.5)
[2018-07-27] MEDS ORDERED: PATIROMER 8.4 GM SUSP PACKET PO ONE (06:00)
[2018-07-27] MEDS ORDERED: SODIUM BICARBONATE 8.4% INJ 50 MEQ/50 ML DISP.SYRIN IV ONE (06:00)
[2018-07-27] MEDS ORDERED: PATIROMER 8.4 GM SUSP PACKET ONE (06:19)
[2018-07-27] MEDS: SALMETEROL XINAFOATE DISKUS 50 MCG/1 DOSE 28 DOSE IH SCH ×2 (06:22→17:11)
[2018-07-27] MEDS: GABAPENTIN 300 MG CAPSULE PO SCH ×4 (06:22→23:27)
[2018-07-27] MEDS: IPRATROPIUM/ALBUTEROL 0.5-2.5 MG/3 ML AMPUL NEB SCH ×3 (07:55→21:00)
[2018-07-27] MEDS ORDERED: DEXTROSE 50%-WATER 25 GM/50 ML DISP.SYRIN IV ONE (09:30)
[2018-07-27] MEDS ORDERED: LACTULOSE SYRUP 20 GM/30 ML UDCUP PO ONE (09:30)
[2018-07-27] MEDS ORDERED: CALCIUM GLUCONATE 1000 MG/10 ML INJ IV ONE (09:30)
[2018-07-27] MEDS ORDERED: ALBUTEROL SULFATE 0.083% NEB 2.5 MG/3 ML AMPUL NEB ONE (09:30)
[2018-07-27] MEDS ORDERED: INSULIN REG, HUMAN 100 UNIT/ML 3 ML VIAL (PYX) IV ONE (09:30)
[2018-07-27] MEDS: ASPIRIN 81 MG TABLET, ENT COATED PO SCH (09:34)
[2018-07-27] MEDS: GUAIFENESIN 600 MG TABLET.SA PO SCH ×2 (09:34→23:27)
[2018-07-27] MEDS: PREDNISONE 20 MG TABLET PO SCH (09:35)
[2018-07-27] MEDS: RUXOLITINIB PHOSPHATE 15 MG PO SCH (09:36)
[2018-07-27] MEDS: MEGESTROL ACETATE 20 MG TABLET PO SCH (09:37)
[2018-07-27] MEDS: FONDAPARINUX SODIUM INJ 2.5 MG/0.5 ML DISP.SYRIN SUBCUT SCH (09:37)
[2018-07-27] MEDS: NICOTINE 14 MG/24 HR PATCH.TD24 TD SCH (09:38)
[2018-07-27] MEDS: TIOTROPIUM BROMIDE DPI 5 CAP/KIT (18 MCG/CAP) IH SCH (09:56)
--- NOTE | 2018-07-27 12:38 | Pulmonary Function Test ---
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 This does not preclude a clinical trial of bronchodilator therapy. Restrictive defect is implied but cannot be diagnosed on the basis of spirometry alone. If clinically indicated complete pulmonary function test would be warranted. (Restrictive defect may mask the degree of obstruction.)
[2018-07-27 14:09] LABS: ANION GAP 9 (5-19); BLOOD UREA NITROGEN 43 mg/dL (7-20); CALCIUM 9.1 mg/dL (8.4-10.2); CARBON DIOXIDE 32 mmol/L (22-30); CHLORIDE 92 mmol/L (98-107); GLUCOSE 199 mg/dL (75-110); SODIUM 133.2 mmol/L (137-145)
[2018-07-27 14:18] LABS: POTASSIUM 6.9 mmol/L (3.6-5.0)
--- NOTE | 2018-07-27 17:36 | PDOC PROGRESS REPORT ---
Subjective Progress Note for:: 07/27/18 Subjective:: MIRELA XIE is a 77 year old male with a PMH of thrombocytosis (followed by Dr. Mir), chronic back pain and DJD. He was admitted to [facility] for RML community acquired PNA. The patient was seen on afternoon rounds. He is found resting in bed comfortably on room air. He is sleeping soundly and rouses slightly when I say his name but quickly falls back to sleep. Per nursing, patient is fatigued from frequent trips to the restroom (r/t lasix and lactulose administration). He appears to be comfortable and not in any acute distress. No concerns per nursing. Reason For Visit: PNEUMONIA Physical Exam Vital Signs: Temp Pulse Resp BP Pulse Ox 98.8 F 86 17 119/53 L 96 07/27/18 15:33 07/27/18 15:33 07/27/18 15:33 07/27/18 15:33 07/27/18 15:33 Intake & Output 07/26/18 07/27/18 07/28/18 06:59 06:59 06:59 Intake Total 977 2406 1031 Output Total 200 Balance 977 2406 831 Weight 50.9 kg 51.2 kg Results Laboratory Results: 07/27/18 04:34 07/27/18 13:09 07/26/18 07/27/18 07/27/18 21:00 04:34 04:34 WBC 50.7 H* RBC 2.37 L Hgb 7.8 L Hct 24.8 L MCV 104 H MCH 33.0 MCHC 31.6 L RDW 18.6 H Plt Count 1292 H* Sodium 136.7 L Potassium 6.5 H* 6.5 H* Chloride 95 L Carbon Dioxide 34 H Anion Gap 8 BUN 42 H Creatinine 1.09 Est GFR ( Amer) > 60 Est GFR (Non-Af Amer) > 60 Glucose 91 Calcium 9.3 07/27/18 13:09 WBC RBC Hgb Hct MCV MCH MCHC RDW Plt Count Sodium 133.2 L Potassium 6.9 H* Chloride 92 L Carbon Dioxide 32 H Anion Gap 9 BUN 43 H Creatinine 1.16 Est GFR ( Amer) > 60 Est GFR (Non-Af Amer) > 60 Glucose 199 H Calcium 9.1 07/20/18 07/21/18 13:46 06:13 Troponin I < 0.012 NT-Pro-B Natriuret Pep 1090 H Impressions: Chest X-Ray 07/20/18 13:09 IMPRESSION: Right lung pneumonia versus mass. Assessment & Plan - Diagnosis (1) Sepsis Qualifiers: Sepsis type: sepsis due to unspecified organism Qualified Code(s): A41.9 - Sepsis, unspecified organism Is this a current diagnosis for this admission?: Yes Plan: Resolved. Secondary to pneumonia, present on admission, as evidenced by leukocytosis, tachycardia and tachypnea. CXR demonstrates RML PNA Blood cultures have no growth The patient was empirically treated with IV Rocephin and azithromycin for treatm ent of a community-acquired pneumonia; antibiotics discontinued on day #7 as patient has been afebrile with clinical improvement >48 hours. 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 No indications for continued antibiotics at this time. (2) Hyperkalemia Is this a current diagnosis for this admission?: Yes Plan: Unclear etiology; possibly related to thrombocytopenia, lymphocytosis, or Lovenox use. K 5.2-> 4.9-> 6.3-> 6.9 Attempts to correct with IV calcium gluconate, D5, Insulin, Bicarb, albuterol nebs, and lactulose again today without effect. Continue PO Veltassa; dose increase by nephrology. Continuous cardiac telemetry; discussed with nursing, monitor closely Nephrology is consulted; appreciate Dr. Levi's evaluation and recommendatio ns. Spoke w/ Dr. Levi and Dr. Maddox today. Likely pseudo-hyperkalemia 2/2 hrombocytopenia/lymphocytosis. Jakafi discontinued by Heme/Onc; start Hydrea 1000 mg BID. (3) Hypoxia Is this a current diagnosis for this admission?: Yes Plan: Resolved; now maintaining oxygen saturations while ambulatory on room air. Secondary to PNA and COPD exacerbation CXR demonstrates chronic changes associated with emphysema/COPD as well as RML PNA Supplemental oxygen via nasal cannula for SPO2>88% Transitioned to p.o. prednisone today. Serevent, Spiriva, nebulizers as needed. Encourage ambulation and use of IS (4) Leukocytosis Qualifiers: Leukocytosis type: other Qualified Code(s): D72.828 - Other elevated white blood cell count Is this a current diagnosis for this admission?: Yes Plan: Acute phase reaction to PNA in setting of primary thrombocytosis and IV steroids for COPD exacerbation. Discussed with HEME/ONC Flow cytometry pending. Clinical picture is improving; no indications for further antibiotics. Continue to monitor. Remaining plan as above. (5) Thrombocytosis Is this a current diagnosis for this admission?: Yes Plan: History of thrombocytosis Followed by Dr. Mir Aspirin 81mg PO daily Plan as above. (6) Anemia Qualifiers: Anemia type: other cause Other causes of anemia: antineoplastic chemotherapy Qualified Code(s): D64.81 - Anemia due to antineoplastic chemotherapy; T45.1X5A - Adverse effect of antineoplastic and immunosuppressive drugs, initial encounter Is this a current diagnosis for this admission?: Yes Plan: Chronic; likely myeloproliferative disorder as patient has chronic thrombocytopenia now with leukocytosis. Hemoglobin 9.0 on admission; has trended down to 7.8. Appears to be at baseline. No indications of active bleeding. Will continue to monitor. (7) Pneumonia Qualifiers: Pneumonia type: due to unspecified organism Laterality: right Lung loca tion: middle lobe of lung Qualified Code(s): J18.1 - Lobar pneumonia, unspecified organism Is this a current diagnosis for this admission?: Yes Plan: Resolved. Community-acquired pneumonia Lobar infiltrate in RML Blood cultures negative Sputum culture ordered Empiric antibiotic coverage with Rocephin and azithromycin; has completed a 7- day course of therapy. - Time Time Spent with patient: 15-24 minutes Medications reviewed and adjusted accordingly: Yes Anticipated discharge: Home Within: Other - One potassium is stabalized.
[2018-07-27] MEDS: DEXTROSE 5%-WATER 1000 ML 1,000 ML with SODIUM BICARBONATE 100 MEQ IV PRN ×2 (19:52)
[2018-07-27] MEDS: HYDROXYUREA 500 MG CAPSULE PO SCH (19:53)
[2018-07-27 20:03] LABS: CREATINE KINASE MB 1.26 ng/mL (<4.55)
[2018-07-27 20:06] LABS: TROPONIN I < 0.012 ng/mL
--- NOTE | 2018-07-27 21:05 | PDOC PROGRESS REPORT ---
Subjective Progress Note for:: 07/27/18 Subjective:: Patient states that he has been going to the bathroom every hours since the dose of Lasix last night. He was also going to the bathroom for bowel movement due to combination of diltiazem and lactulose. However despite all the medications that he has been given to bring down the potassium it remains to be elevated without any response at all. Patient was also given calcium gluconate, regular insulin, albuterol, sodium bicarbonate, apart from the Lasix, veltassa and lactulose. I have discussed the case with Crystal because at this point I think we need to see if there is any other therapeutic options with the patient's thrombocytosis and leukocytosis which has been increasing for the last few days which I think the main reason for this persistent and resistant hyperkalemia. Patient's kidney function remains to be within acceptable normal limits. Reason For Visit: PNEUMONIA Physical Exam Vital Signs: Temp Pulse Resp BP Pulse Ox 98.6 F 91 16 111/55 L 97 07/27/18 19:27 07/27/18 19:27 07/27/18 19:27 07/27/18 19:27 07/27/18 19:27 Intake & Output 07/26/18 07/27/18 07/28/18 06:59 06:59 06:59 Intake Total 977 2406 1268 Output Total 200 Balance 977 2406 1068 Weight 50.9 kg 51.2 kg Exam: General appearance: PRESENT: no acute distress, cooperative, well-developed, well-nourished Head exam: PRESENT: atraumatic, normocephalic Eye exam: PRESENT: conjunctiva pink, PERRLA. ABSENT: scleral icterus Neck exam: ABSENT: JVD Respiratory exam: PRESENT: Normal breath sounds. ABSENT: crackles, rales, rhonchi, unlabored, wheezes Cardiovascular exam: PRESENT: Regular rate rhythm -+S1, +S2. ABSENT: diastolic murmur, systolic murmur GI/Abdominal exam: PRESENT: normal bowel sounds, soft. ABSENT: guarding, mass, tenderness Extremities exam: ABSENT: No edema Neurological exam: PRESENT: alert, awake, oriented to person, place and time. Skin exam: PRESENT: dry, warm, Results Laboratory Results: 07/27/18 04:34 07/27/18 13:09 0207/27/18 07/27/18 21:00 04:34 04:34 WBC 50.7 H* RBC 2.37 L Hgb 7.8 L Hct 24.8 L MCV 104 H MCH 33.0 MCHC 31.6 L RDW 18.6 H Plt Count 1292 H* Sodium 136.7 L Potassium 6.5 H* 6.5 H* Chloride 95 L Carbon Dioxide 34 H Anion Gap 8 BUN 42 H Creatinine 1.09 Est GFR ( Amer) > 60 Est GFR (Non-Af Amer) > 60 Glucose 91 Calcium 9.3 07/27/18 13:09 WBC RBC Hgb Hct MCV MCH MCHC RDW Plt Count Sodium 133.2 L Potassium 6.9 H* Chloride 92 L Carbon Dioxide 32 H Anion Gap 9 BUN 43 H Creatinine 1.16 Est GFR ( Amer) > 60 Est GFR (Non-Af Amer) > 60 Glucose 199 H Calcium 9.1 07/20/18 07/21/18 07/27/18 13:46 06:13 19:20 CK-MB (CK-2) 1.26 Troponin I < 0.012 < 0.012 NT-Pro-B Natriuret Pep 1090 H Impressions: Chest X-Ray 07/20/18 13:09 IMPRESSION: Right lung pneumonia versus mass. Assessment & Plan - Diagnosis (1) Hyperkalemia Is this a current diagnosis for this admission?: Yes Plan: Multifactorial but mainly due to thrombocytosis and leukocytosis with contribution of medication including previously given Lovenox and potassium intake. Dr. Maddox has reinitiated Hydrea for the patient. I will start the patient on sodium bicarbonate drip. Since the patient's kidney function is within normal limits and is deemed to be not the cause of the patient's hyperkalemia dialysis will be the last resort for this hyperkalemia if it shows cardiac toxicity. (2) Pneumonia Qualifiers: Pneumonia type: due to unspecified organism Laterality: right Lung location: middle lobe of lung Qualified Code(s): J18.1 - Lobar pneumonia, unspecified organism Is this a current diagnosis for this admission?: Yes (3) Anemia Qualifiers: Anemia type: other cause Other causes of anemia: antineoplastic chemotherapy Qualified Code(s): D64.81 - Anemia due to antineoplastic chemotherapy; T45.1X5A - Adverse effect of antineoplastic and immunosuppressive drugs, initial encounter Is this a current diagnosis for this admission?: Yes (4) Thrombocytosis Is this a current diagnosis for this admission?: Yes (5) Leukocytosis Qualifiers: Leukocytosis type: other Qualified Code(s): D72.828 - Other elevated white blood cell count Is this a current diagnosis for this admission?: Yes - Time Time with patient: 15-25 minutes
--- NOTE | 2018-07-28 00:31 | EKG REPORT ---
SEVERITY:- OTHERWISE NORMAL ECG - SINUS RHYTHM LOW VOLTAGE IN FRONTAL LEADS : Confirmed by: Elsie Marks MD 28-Jul-2018 00:30:53
[2018-07-28] MEDS: SALMETEROL XINAFOATE DISKUS 50 MCG/1 DOSE 28 DOSE IH SCH ×2 (05:03→17:56)
[2018-07-28] MEDS: GABAPENTIN 300 MG CAPSULE PO SCH ×4 (05:03→23:47)
[2018-07-28 05:42] LABS: HEMATOCRIT 21.7 % (37.9-51.0); MEAN CORPUSCULAR HEMOGLOBIN 33.9 pg (27.0-33.4); MEAN CORPUSCULAR HGB CONC 32.2 g/dL (32.0-36.0); MEAN CORPUSCULAR VOLUME 106 fl (80-97); RED BLOOD COUNT 2.06 10^6/uL (4.35-5.55); RED CELL DISTRIBUTION WIDTH 18.4 % (11.5-14.0)
[2018-07-28 05:56] LABS: ALANINE AMINOTRANSFERASE 139 U/L (21-72); ALBUMIN 2.7 g/dL (3.5-5.0); ALKALINE PHOSPHATASE 60 U/L (38-126); ASPARTATE AMINO TRANSFERASE 49 U/L (17-59); BILIRUBIN,DIRECT 0.1 mg/dL (0.0-0.4); BILIRUBIN,TOTAL 0.4 mg/dL (0.2-1.3); BLOOD UREA NITROGEN 34 mg/dL (7-20); CALCIUM 8.4 mg/dL (8.4-10.2); GLUCOSE 93 mg/dL (75-110); TOTAL PROTEIN 4.7 g/dL (6.3-8.2)
[2018-07-28 06:01] LABS: CARBON DIOXIDE 35 mmol/L (22-30); CHLORIDE 94 mmol/L (98-107); SODIUM 132.2 mmol/L (137-145)
[2018-07-28 06:04] LABS: ABSOLUTE LYMPHOCYTES# (MANUAL) 1.8 10^3/uL (0.5-4.7); ABSOLUTE MONOCYTES # (MANUAL) 1.1 10^3/uL (0.1-1.4); ABSOLUTE NEUTROPHILS# (MANUAL) 33.5 10^3/uL (1.7-8.2); BAND NEUTROPHILS % (MANUAL) 5 % (3-5); BASOPHILS % (MANUAL) 0 % (0-2); EOSINOPHILS % (MANUAL) 0 % (0-6); LYMPHOCYTES % (MANUAL) 5 % (13-45); METAMYELOCYTES % (MANUAL) 1 % (0); MONOCYTES % (MANUAL) 3 % (3-13); SEGMENTED NEUTROPHILS % (MAN) 86 % (42-78); TOTAL CELLS COUNTED 100
[2018-07-28 06:12] LABS: POTASSIUM 5.5 mmol/L (3.6-5.0)
[2018-07-28 06:15] LABS: POLYCHROMASIA 1+
[2018-07-28 06:16] LABS: ANISOCYTOSIS 1+; OVALOCYTES 1+; PLATELET COMMENT INCREASED; PLATELET LARGE PRESENT; POIKILOCYTOSIS 1+; TEAR DROP CELLS SLIGHT
[2018-07-28 06:19] LABS: WHITE BLOOD COUNT 36.4 10^3/uL (4.0-10.5)
[2018-07-28 06:20] LABS: PLATELET COUNT 1188 10^3/uL (150-450)
[2018-07-28 06:30] LABS: ANION GAP 3 (5-19)
[2018-07-28] MEDS: IPRATROPIUM/ALBUTEROL 0.5-2.5 MG/3 ML AMPUL NEB SCH ×3 (07:45→20:44)
--- NOTE | 2018-07-28 08:43 | PDOC PROGRESS REPORT ---
Subjective Progress Note for:: 07/28/18 Subjective:: Called yesterday by hospitalist team, unfortunately patient has been chronically hyperkalemic over the last few days, all medical intervention which was tried, nephrology felt that this may be a pseudo-hyperkalemia because of the elevated white count and platelets. Thus we started Hydrea 1000 mg twice daily, and white count is down after 1 dose of that to 35, platelets are down as well. And his hyperkalemia has improved greatly. Unfortunately however, as this is happened as an outpatient, his hemoglobin took a major drop with it as well, and probably will drop into the transfusion criteria range soon. Reason For Visit: PNEUMONIA Physical Exam Vital Signs: Temp Pulse Resp BP Pulse Ox 98.0 F 81 19 114/59 L 97 07/28/18 07:40 07/28/18 07:40 07/28/18 07:40 07/28/18 07:40 07/28/18 07:40 Intake & Output 07/27/18 07/28/18 07/29/18 06:59 06:59 06:59 Intake Total 2406 1508 Output Total 200 Balance 2406 1308 Weight 51.2 kg 51.2 kg General appearance: PRESENT: no acute distress, well-developed, well-nourished Head exam: PRESENT: atraumatic, normocephalic Eye exam: PRESENT: conjunctiva pink, EOMI, PERRLA. ABSENT: scleral icterus Ear exam: PRESENT: normal external ear exam Mouth exam: PRESENT: moist, tongue midline Neck exam: ABSENT: carotid bruit, JVD, lymphadenopathy, thyromegaly Respiratory exam: PRESENT: clear to auscultation erinn. ABSENT: rales, rhonchi, wheezes Cardiovascular exam: PRESENT: RRR. ABSENT: diastolic murmur, rubs, systolic murmur Pulses: PRESENT: normal dorsalis pedis pul Vascular exam: PRESENT: normal capillary refill GI/Abdominal exam: PRESENT: normal bowel sounds, soft. ABSENT: distended, guarding, mass, organolmegaly, rebound, tenderness Rectal exam: PRESENT: deferred Extremities exam: PRESENT: full ROM. ABSENT: calf tenderness, clubbing, pedal edema Neurological exam: PRESENT: alert, awake, oriented to person, oriented to place, oriented to time, oriented to situation, CN II-XII grossly intact. ABSENT: motor sensory deficit Psychiatric exam: PRESENT: appropriate affect, normal mood. ABSENT: homicidal ideation, suicidal ideation Skin exam: PRESENT: dry, intact, warm. ABSENT: cyanosis, rash Results Laboratory Results: 07/28/18 05:23 07/28/18 05:23 07/27/18 07/28/18 07/28/18 13:09 05:23 05:23 WBC 36.4 H* RBC 2.06 L Hgb 7.0 L Hct 21.7 L MCV 106 H MCH 33.9 H MCHC 32.2 RDW 18.4 H Plt Count 1188 H* Seg Neutrophils % Not Reportable Lymphocytes % Not Reportable Monocytes % Not Reportable Eosinophils % Not Reportable Basophils % Not Reportable Absolute Neutrophils Not Reportable Absolute Lymphocytes Not Reportable Absolute Monocytes Not Reportable Absolute Eosinophils Not Reportable Absolute Basophils Not Reportable Sodium 133.2 L 132.2 L Potassium 6.9 H* 5.5 H D Chloride 92 L 94 L Carbon Dioxide 32 H 35 H Anion Gap 9 3 L BUN 43 H 34 H Creatinine 1.16 0.89 Est GFR ( Amer) > 60 > 60 Est GFR (Non-Af Amer) > 60 > 60 Glucose 199 H 93 Calcium 9.1 8.4 Total Bilirubin 0.4 AST 49 ALT 139 H Alkaline Phosphatase 60 Total Protein 4.7 L Albumin 2.7 L 07/20/18 07/21/18 07/27/18 13:46 06:13 19:20 CK-MB (CK-2) 1.26 Troponin I < 0.012 < 0.012 NT-Pro-B Natriuret Pep 1090 H Impressions: Chest X-Ray 07/20/18 13:09 IMPRESSION: Right lung pneumonia versus mass. Assessment & Plan - Diagnosis (1) Pneumonia Qualifiers: Pneumonia type: due to unspecified organism Laterality: right Lung location: middle lobe of lung Qualified Code(s): J18.1 - Lobar pneumonia, unspecified organism Is this a current diagnosis for this admission?: Yes Plan: Improved, continue to monitor, continue antibiotics per hospitalist team (2) Thrombocytosis Is this a current diagnosis for this admission?: Yes Plan: Secondary to essential thrombocytosis, because of the severe leukocytosis and ps eudohyperkalemia we should continue Hydrea for another 24 hours. (3) Anemia Qualifiers: Anemia type: other cause Other causes of anemia: antineoplastic chemotherapy Qualified Code(s): D64.81 - Anemia due to antineoplastic chemotherapy; T45.1X5A - Adverse effect of antineoplastic and immunosuppressive drugs, initial encounter Is this a current diagnosis for this admission?: Yes Plan: Worsened secondary to the Hydrea, will probably need transfusion in the next few days. - Time Time Spent with patient: 35 or more minutes Disposition: He will probably need to stay over the next few days because we need to make sure the potassium remains stable and his counts especially hemoglobin remained stable. It would be beneficial probably to get his white count and platelet count down a little bit further with Hydrea over the next few days. But this needs to be done closely with an inpatient following - Inpatient Certification Based on my medical assessment, after consideration of the patient's comorbidities, presenting symptoms, or acuity I expect that the services needed warrant INPATIENT care.: Yes I certify that my determination is in accordance with my understanding of Medicare's requirements for reasonable and necessary INPATIENT services [42 CFR 412.3e].: Yes Medical Necessity: Risk of Complication if Not Cared For in Hospital
[2018-07-28] MEDS: ASPIRIN 81 MG TABLET, ENT COATED PO SCH (09:41)
[2018-07-28] MEDS: GUAIFENESIN 600 MG TABLET.SA PO SCH ×2 (09:41→21:39)
[2018-07-28] MEDS: PREDNISONE 20 MG TABLET PO SCH (09:41)
[2018-07-28] MEDS: NICOTINE 14 MG/24 HR PATCH.TD24 TD SCH (09:42)
[2018-07-28] MEDS: TIOTROPIUM BROMIDE DPI 5 CAP/KIT (18 MCG/CAP) IH SCH (09:48)
[2018-07-28] MEDS: MEGESTROL ACETATE 20 MG TABLET PO SCH (09:48)
[2018-07-28] MEDS: FONDAPARINUX SODIUM INJ 2.5 MG/0.5 ML DISP.SYRIN SUBCUT SCH (09:48)
[2018-07-28] MEDS: HYDROXYUREA 500 MG CAPSULE PO SCH ×2 (09:48→17:56)
--- NOTE | 2018-07-28 11:57 | PDOC PROGRESS REPORT ---
Subjective Progress Note for:: 07/28/18 Subjective:: MIRELA XIE is a 77 year old male with a PMH of thrombocytosis (followed by Dr. Mir), chronic back pain and DJD. He was admitted to [facility] for RML community acquired PNA. The patient was seen on morning rounds. He is found resting in bed comfortably on room air. He reports that he is feeling well today; used oxygen overnight (to be safe) but denies dyspnea, orthopnea, cough, chest pain, palpitations. Resting oxygen saturation checked; found to be 94%. He reports that his urinary frequency and loose stools have resolved (secondary to Lasix and lactulose administration yesterday). He understands that he needs to stay in the hospital until we can demonstrate that his potassium and cell count levels are stable. He has no other questions or concerns. No concerns per nursing. Reason For Visit: PNEUMONIA Physical Exam Vital Signs: Temp Pulse Resp BP Pulse Ox 98.0 F 82 16 114/59 L 92 07/28/18 07:40 07/28/18 07:45 07/28/18 07:45 07/28/18 07:40 07/28/18 07:45 Intake & Output 07/27/18 07/28/18 07/29/18 06:59 06:59 06:59 Intake Total 2406 1508 Output Total 200 Balance 2406 1308 Weight 51.2 kg 51.2 kg General appearance: PRESENT: no acute distress, cooperative, thin, well- developed Head exam: PRESENT: atraumatic, normocephalic Eye exam: PRESENT: conjunctiva pink, EOMI, PERRLA. ABSENT: scleral icterus Ear exam: PRESENT: normal external ear exam Mouth exam: PRESENT: moist, tongue midline Neck exam: ABSENT: carotid bruit, JVD, lymphadenopathy, thyromegaly Respiratory exam: PRESENT: clear to auscultation erinn, symmetrical, unlabored. ABSENT: rales, rhonchi, wheezes Cardiovascular exam: PRESENT: RRR. ABSENT: diastolic murmur, rubs, systolic murmur Pulses: PRESENT: normal dorsalis pedis pul Vascular exam: PRESENT: normal capillary refill GI/Abdominal exam: PRESENT: normal bowel sounds, soft. ABSENT: distended, guarding, mass, organolmegaly, rebound, tenderness Rectal exam: PRESENT: deferred Extremities exam: PRESENT: full ROM. ABSENT: calf tenderness, clubbing, pedal e cata Neurological exam: PRESENT: alert, awake, oriented to person, oriented to place, oriented to time, oriented to situation, CN II-XII grossly intact. ABSENT: motor sensory deficit Psychiatric exam: PRESENT: appropriate affect, normal mood. ABSENT: homicidal ideation, suicidal ideation Skin exam: PRESENT: dry, intact, warm. ABSENT: cyanosis, rash Results Laboratory Results: 07/28/18 05:23 07/28/18 05:23 07/27/18 07/28/18 07/28/18 13:09 05:23 05:23 WBC 36.4 H* RBC 2.06 L Hgb 7.0 L Hct 21.7 L MCV 106 H MCH 33.9 H MCHC 32.2 RDW 18.4 H Plt Count 1188 H* Seg Neutrophils % Not Reportable Lymphocytes % Not Reportable Monocytes % Not Reportable Eosinophils % Not Reportable Basophils % Not Reportable Absolute Neutrophils Not Reportable Absolute Lymphocytes Not Reportable Absolute Monocytes Not Reportable Absolute Eosinophils Not Reportable Absolute Basophils Not Reportable Sodium 133.2 L 132.2 L Potassium 6.9 H* 5.5 H D Chloride 92 L 94 L Carbon Dioxide 32 H 35 H Anion Gap 9 3 L BUN 43 H 34 H Creatinine 1.16 0.89 Est GFR ( Amer) > 60 > 60 Est GFR (Non-Af Amer) > 60 > 60 Glucose 199 H 93 Calcium 9.1 8.4 Total Bilirubin 0.4 AST 49 ALT 139 H Alkaline Phosphatase 60 Total Protein 4.7 L Albumin 2.7 L 07/20/18 07/21/18 07/27/18 13:46 06:13 19:20 CK-MB (CK-2) 1.26 Troponin I < 0.012 < 0.012 NT-Pro-B Natriuret Pep 1090 H Impressions: Chest X-Ray 07/20/18 13:09 IMPRESSION: Right lung pneumonia versus mass. Assessment & Plan - Diagnosis (1) Sepsis Qualifiers: Sepsis type: sepsis due to unspecified organism Qualified Code(s): A41.9 - Sepsis, unspecified organism Is this a current diagnosis for this admission?: Yes Plan: Resolved. Secondary to pneumonia, present on admission, as evidenced by leukocytosis, tachycardia and tachypnea. CXR demonstrates RML PNA Blood cultures have no growth The patient was empirically treated with IV Rocephin and azithromycin for treatment of a community-acquired pneumonia; antibiotics discontinued on day #7 as patient has been afebrile with clinical improvement >48 hours. 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 No indications for continued antibiotics at this time. (2) Hyperkalemia Is this a current diagnosis for this admission?: Yes Plan: Slight improvement today. Unclear etiology; possibly related to thrombocytopenia, lymphocytosis, or Lovenox use. K 5.2-> 4.9-> 6.3-> 6.9-> 5.5 Attempts to correct with IV calcium gluconate, D5, Insulin, Bicarb, albuterol nebs, and lactulose without effect. Continue PO Veltassa; dosing by nephrology. Continuous cardiac telemetry; discussed with nursing, monitor closely Nephrology is consulted; appreciate Dr. Levi's evaluation and recommendations. Spoke w/ Dr. Levi and Dr. Maddox yesterday. Likely pseudo-hyperkalemia 2/2 hrombocytopenia/lymphocytosis. Jakafi discontinued by Heme/Onc; start Hydrea 1000 mg BID. Bicarb drip per Nephrology. (3) Hypoxia Is this a current diagnosis for this admission?: Yes Plan: Resolved; now maintaining oxygen saturations while ambulatory on room air. Secondary to PNA and COPD exacerbation CXR demonstrates chronic changes associated with emphysema/COPD as well as RML PNA Supplemental oxygen via nasal cannula for SPO2>88% Continue p.o. prednisone today. Serevent, Spiriva, nebulizers as needed. Encourage ambulation and use of IS (4) Leukocytosis Qualifiers: Leukocytosis type: other Qualified Code(s): D72.828 - Other elevated white blood cell count Is this a current diagnosis for this admission?: Yes Plan: Slight improvement today; 20.4-> 50.7-> 36.4 Acute phase reaction to PNA in setting of primary thrombocytosis and IV steroids for COPD exacerbation. Discussed with HEME/ONC Flow cytometry pending. Started on Hydrea yesterday. Continue to monitor. Remaining plan as above. (5) Thrombocytosis Is this a current diagnosis for this admission?: Yes Plan: Slight improvement today; 1104-> 676-> 1292-> 1188 History of essential thrombocytosis Followed by Dr. Mir Aspirin 81mg PO daily Hydrea started yesterday. Plan as above. (6) Anemia Qualifiers: Anemia type: other cause Other causes of anemia: antineoplastic chemotherapy Qualified Code(s): D64.81 - Anemia due to antineoplastic chemotherapy; T45.1X5A - Adverse effect of antineoplastic and immunosuppressive drugs, initial encounter Is this a current diagnosis for this admission?: Yes Plan: Overall downward trend; 9.0-> 7.0 Chronic; likely myeloproliferative disorder as patient has chronic thrombocytopenia now with leukocytosis. No indications of active bleeding. Worsened after starting Hydrea yesterday. Will continue to monitor. May need need transfusion; defer to hematology. Will T&S w/ am labs. (7) Pneumonia Qualifiers: Pneumonia type: due to unspecified organism Laterality: right Lung location: middle lobe of lung Qualified Code(s): J18.1 - Lobar pneumonia, unspecified organism Is this a current diagnosis for this admission?: Yes Plan: Resolved. Community-acquired pneumonia Lobar infiltrate in RML Blood cultures negative Sputum culture ordered Empiric antibiotic coverage with Rocephin and azithromycin; has completed a 7- day course of therapy. - Time Time Spent with patient: 15-24 minutes Medications reviewed and adjusted accordingly: Yes Anticipated discharge: Home
[2018-07-28] MEDS: DEXTROSE 5%-WATER 1000 ML 1,000 ML with SODIUM BICARBONATE 100 MEQ IV PRN ×2 (12:37)
--- NOTE | 2018-07-28 13:01 | PDOC PROGRESS REPORT ---
Subjective Progress Note for:: 07/28/18 Subjective:: Patient is feeling better today. His appetite is better. He had a good bowel movement today. He still makes good amount of urine but not as frequent as when he was given the Lasix 2 nights ago. His potassium is much better. Is otherwise comfortable and hemodynamically stable. Reason For Visit: PNEUMONIA Physical Exam Vital Signs: Temp Pulse Resp BP Pulse Ox 98.0 F 82 16 114/59 L 92 07/28/18 07:40 07/28/18 07:45 07/28/18 07:45 07/28/18 07:40 07/28/18 07:45 Intake & Output 07/27/18 07/28/18 07/29/18 06:59 06:59 06:59 Intake Total 2406 1508 1100 Output Total 200 Balance 2406 1308 1100 Weight 51.2 kg 51.2 kg Exam: General appearance: PRESENT: no acute distress, cooperative, well-developed, w ell-nourished Head exam: PRESENT: atraumatic, normocephalic Eye exam: PRESENT: conjunctiva pink, PERRLA. ABSENT: scleral icterus Neck exam: ABSENT: JVD Respiratory exam: PRESENT: Normal breath sounds. ABSENT: crackles, rales, rhonchi, unlabored, wheezes Cardiovascular exam: PRESENT: Regular rate rhythm -+S1, +S2. ABSENT: diastolic murmur, systolic murmur GI/Abdominal exam: PRESENT: normal bowel sounds, soft. ABSENT: guarding, mass, tenderness Extremities exam: ABSENT: No edema Neurological exam: PRESENT: alert, awake, oriented to person, place and time. Skin exam: PRESENT: dry, warm, Results Laboratory Results: 07/28/18 05:23 07/28/18 05:23 07/27/18 07/28/18 07/28/18 13:09 05:23 05:23 WBC 36.4 H* RBC 2.06 L Hgb 7.0 L Hct 21.7 L MCV 106 H MCH 33.9 H MCHC 32.2 RDW 18.4 H Plt Count 1188 H* Seg Neutrophils % Not Reportable Lymphocytes % Not Reportable Monocytes % Not Reportable Eosinophils % Not Reportable Basophils % Not Reportable Absolute Neutrophils Not Reportable Absolute Lymphocytes Not Reportable Absolute Monocytes Not Reportable Absolute Eosinophils Not Reportable Absolute Basophils Not Reportable Sodium 133.2 L 132.2 L Potassium 6.9 H* 5.5 H D Chloride 92 L 94 L Carbon Dioxide 32 H 35 H Anion Gap 9 3 L BUN 43 H 34 H Creatinine 1.16 0.89 Est GFR ( Amer) > 60 > 60 Est GFR (Non-Af Amer) > 60 > 60 Glucose 199 H 93 Calcium 9.1 8.4 Total Bilirubin 0.4 AST 49 ALT 139 H Alkaline Phosphatase 60 Total Protein 4.7 L Albumin 2.7 L 07/20/18 07/21/18 07/27/18 13:46 06:13 19:20 CK-MB (CK-2) 1.26 Troponin I < 0.012 < 0.012 NT-Pro-B Natriuret Pep 1090 H Impressions: Chest X-Ray 07/20/18 13:09 IMPRESSION: Right lung pneumonia versus mass. Assessment & Plan - Diagnosis (1) Hyperkalemia Is this a current diagnosis for this admission?: Yes Plan: Multifactorial but mainly due to thrombocytosis and leukocytosis with contribution of medication including previously given Lovenox and potassium intake. Dr. Maddox has reinitiated Hydrea for the patient. I will start the patient on sodium bicarbonate drip. Since the patient's kidney function is within normal limits and is deemed to be not the cause of the patient's hyperkalemia dialysis will be the last resort for this hyperkalemia if it shows cardiac toxicity. Patient's potassium level has significantly improved with combination of the bicarb drip and the hydroxyurea. We will continue the bicarb drip for the next 24 hours and will try to see if I can switch him to oral sodium bicarbonate for maintenance once the potassium is within normal limits already. (2) Pneumonia Qualifiers: Pneumonia type: due to unspecified organism Laterality: right Lung location: middle lobe of lung Qualified Code(s): J18.1 - Lobar pneumonia, unspecified organism Is this a current diagnosis for this admission?: Yes (3) Anemia Qualifiers: Anemia type: other cause Other causes of anemia: antineoplastic chemotherapy Qualified Code(s): D64.81 - Anemia due to antineoplastic chemotherapy; T45.1X5A - Adverse effect of antineoplastic and immunosuppressive drugs, initial encounter Is this a current diagnosis for this admission?: Yes Plan: His hemoglobin has been decreased today. Likely to need blood transfusion if it continues to go down in the next few days. (4) Thrombocytosis Is this a current diagnosis for this admission?: Yes Plan: Dr. Maddox, freight trucker on board and managing this. (5) Leukocytosis Qualifiers: Leukocytosis type: other Qualified Code(s): D72.828 - Other elevated white blood cell count Is this a current diagnosis for this admission?: Yes Plan: Defer to Dr. Maddox. - Time Time with patient: 15-25 minutes
[2018-07-29] MEDS ORDERED: SODIUM BICARBONATE 8.4% INJ 50 MEQ/50 ML DISP.SYRIN ONE ×2 (04:37→05:06)
[2018-07-29] MEDS: DEXTROSE 5%-WATER 1000 ML 1,000 ML with SODIUM BICARBONATE 100 MEQ IV PRN ×2 (05:15)
[2018-07-29] MEDS: GABAPENTIN 300 MG CAPSULE PO SCH ×3 (05:16→17:07)
[2018-07-29] MEDS: SALMETEROL XINAFOATE DISKUS 50 MCG/1 DOSE 28 DOSE IH SCH ×2 (05:16→17:07)
[2018-07-29 05:20] LABS: HEMATOCRIT 21.9 % (37.9-51.0); MEAN CORPUSCULAR HEMOGLOBIN 33.7 pg (27.0-33.4); MEAN CORPUSCULAR HGB CONC 32.4 g/dL (32.0-36.0); MEAN CORPUSCULAR VOLUME 104 fl (80-97); WHITE BLOOD COUNT 29.5 10^3/uL (4.0-10.5)
[2018-07-29 05:30] LABS: ANION GAP 7 (5-19); BLOOD UREA NITROGEN 33 mg/dL (7-20); CALCIUM 7.9 mg/dL (8.4-10.2); CARBON DIOXIDE 31 mmol/L (22-30); CHLORIDE 92 mmol/L (98-107); GLUCOSE 89 mg/dL (75-110); POTASSIUM 5.1 mmol/L (3.6-5.0); SODIUM 130.2 mmol/L (137-145)
[2018-07-29 05:49] LABS: HEMOGLOBIN 7.1 g/dL (13.5-17.0); PLATELET COUNT 1038 10^3/uL (150-450)
[2018-07-29] MEDS: IPRATROPIUM/ALBUTEROL 0.5-2.5 MG/3 ML AMPUL NEB SCH ×3 (07:39→19:28)
--- NOTE | 2018-07-29 08:21 | PDOC PROGRESS REPORT ---
Subjective Progress Note for:: 07/29/18 Subjective:: Patient looks great today, white count is better, hemoglobin is down, potassium is down Reason For Visit: PNEUMONIA Physical Exam Vital Signs: Temp Pulse Resp BP Pulse Ox 98.5 F 75 16 122/54 L 93 07/29/18 03:26 07/29/18 07:41 07/29/18 07:41 07/29/18 03:26 07/29/18 07:41 Intake & Output 07/28/18 07/29/18 07/30/18 06:59 06:59 06:59 Intake Total 1508 3446 Output Total 200 Balance 1308 3446 Weight 51.2 kg 51.2 kg General appearance: PRESENT: no acute distress, well-developed, well-nourished Head exam: PRESENT: atraumatic, normocephalic Eye exam: PRESENT: conjunctiva pink, EOMI, PERRLA. ABSENT: scleral icterus Ear exam: PRESENT: normal external ear exam Mouth exam: PRESENT: moist, tongue midline Neck exam: ABSENT: carotid bruit, JVD, lymphadenopathy, thyromegaly Respiratory exam: PRESENT: clear to auscultation erinn. ABSENT: rales, rhonchi, wheezes Cardiovascular exam: PRESENT: RRR. ABSENT: diastolic murmur, rubs, systolic murmur Pulses: PRESENT: normal dorsalis pedis pul Vascular exam: PRESENT: normal capillary refill GI/Abdominal exam: PRESENT: normal bowel sounds, soft. ABSENT: distended, guarding, mass, organolmegaly, rebound, tenderness Rectal exam: PRESENT: deferred Extremities exam: PRESENT: full ROM. ABSENT: calf tenderness, clubbing, pedal edema Neurological exam: PRESENT: alert, awake, oriented to person, oriented to place, oriented to time, oriented to situation, CN II-XII grossly intact. ABSENT: motor sensory deficit Psychiatric exam: PRESENT: appropriate affect, normal mood. ABSENT: homicidal ideation, suicidal ideation Skin exam: PRESENT: dry, intact, warm. ABSENT: cyanosis, rash Results Laboratory Results: 07/29/18 04:50 07/29/18 04:50 07/29/18 07/29/18 07/29/18 04:50 04:50 04:50 WBC 29.5 H RBC 2.10 L Hgb 7.1 L Hct 21.9 L MCV 104 H MCH 33.7 H MCHC 32.4 RDW 18.0 H Plt Count 1038 H* Sodium 130.2 L Potassium 5.1 H Chloride 92 L Carbon Dioxide 31 H Anion Gap 7 BUN 33 H Creatinine 0.90 Est GFR ( Amer) > 60 Est GFR (Non-Af Amer) > 60 Glucose 89 Calcium 7.9 L Blood Type O POSITIVE Antibody Screen NEGATIVE 07/20/18 07/21/18 07/27/18 13:46 06:13 19:20 CK-MB (CK-2) 1.26 Troponin I < 0.012 < 0.012 NT-Pro-B Natriuret Pep 1090 H Impressions: Chest X-Ray 07/20/18 13:09 IMPRESSION: Right lung pneumonia versus mass. Assessment & Plan - Diagnosis (1) Pneumonia Qualifiers: Pneumonia type: due to unspecified organism Laterality: right Lung location: middle lobe of lung Qualified Code(s): J18.1 - Lobar pneumonia, unspecified organism Is this a current diagnosis for this admission?: Yes Plan: Improved continue antibiotics (2) Thrombocytosis Is this a current diagnosis for this admission?: Yes Plan: Improved, after hospitalization we will discontinue the Hydrea and reinitiate the Jakafi (3) Anemia Qualifiers: Anemia type: other cause Other causes of anemia: antineoplastic chemotherapy Qualified Code(s): D64.81 - Anemia due to antineoplastic ch emotherapy; T45.1X5A - Adverse effect of antineoplastic and immunosuppressive drugs, initial encounter Is this a current diagnosis for this admission?: Yes Plan: Hemoglobin down from the Hydrea, will give 1 unit of packed red blood cell today. I will discussed case with hospitalist team to see about when they are comfortable for discharge - Time Time Spent with patient: 35 or more minutes
[2018-07-29] MEDS ORDERED: FUROSEMIDE INJ/PF 20 MG/2 ML SDV IV PRN (08:22)
[2018-07-29] MEDS ORDERED: ACETAMINOPHEN 325 MG TABLET PO PRN (08:23)
[2018-07-29] MEDS ORDERED: DIPHENHYDRAMINE HCL 25 MG CAPSULE PO PRN (08:23)
[2018-07-29] MEDS: PREDNISONE 20 MG TABLET PO SCH (09:35)
[2018-07-29] MEDS: ASPIRIN 81 MG TABLET, ENT COATED PO SCH (09:36)
[2018-07-29] MEDS: NICOTINE 14 MG/24 HR PATCH.TD24 TD SCH (09:36)
[2018-07-29] MEDS: GUAIFENESIN 600 MG TABLET.SA PO SCH ×2 (09:36→21:23)
[2018-07-29] MEDS: FONDAPARINUX SODIUM INJ 2.5 MG/0.5 ML DISP.SYRIN SUBCUT SCH (09:39)
[2018-07-29] MEDS: MEGESTROL ACETATE 20 MG TABLET PO SCH (09:40)
[2018-07-29] MEDS: HYDROXYUREA 500 MG CAPSULE PO SCH ×2 (09:40→17:07)
[2018-07-29] MEDS: TIOTROPIUM BROMIDE DPI 5 CAP/KIT (18 MCG/CAP) IH SCH (09:40)
--- NOTE | 2018-07-29 13:46 | PDOC PROGRESS REPORT ---
Subjective Progress Note for:: 07/29/18 Subjective:: MIRELA XIE is a 77 year old male with a PMH of thrombocytosis (followed by Dr. Mir), chronic back pain and DJD. He was admitted to [facility] for RML community acquired PNA. The patient was seen on morning rounds. He is found resting in bed comfortably on room air. He reports that he is feeling well today; he denies fever, chills, headache, dizziness, chest pain, palpitations, dyspnea, abdominal pain, nausea, vomiting, diarrhea, and muscle cramps. He is pleased to hear that his lab work looks improved today and that he may be ready to go home within the next 24-48 hours. He has no questions or concerns. No concerns per nursing. Reason For Visit: PNEUMONIA Physical Exam Vital Signs: Temp Pulse Resp BP Pulse Ox 98.0 F 91 16 120/51 L 95 07/29/18 11:50 07/29/18 11:50 07/29/18 11:50 07/29/18 11:50 07/29/18 11:50 Intake & Output 07/28/18 07/29/18 07/30/18 06:59 06:59 06:59 Intake Total 1508 3446 0 Output Total 200 Balance 1308 3446 0 Weight 51.2 kg 51.2 kg General appearance: PRESENT: no acute distress, cooperative, thin, well- developed Head exam: PRESENT: atraumatic, normocephalic Eye exam: PRESENT: conjunctiva pink, EOMI, PERRLA. ABSENT: scleral icterus Mouth exam: PRESENT: moist, tongue midline Respiratory exam: PRESENT: clear to auscultation erinn, symmetrical, unlabored. ABSENT: rales, rhonchi, wheezes Cardiovascular exam: PRESENT: RRR. ABSENT: diastolic murmur, rubs, systolic murmur Pulses: PRESENT: normal dorsalis pedis pul Vascular exam: PRESENT: normal capillary refill GI/Abdominal exam: PRESENT: normal bowel sounds, soft. ABSENT: distended, guarding, mass, organolmegaly, rebound, tenderness Extremities exam: PRESENT: full ROM. ABSENT: calf tenderness, clubbing, pedal edema Neurological exam: PRESENT: alert, awake, oriented to person, oriented to place, oriented to time, oriented to situation, CN II-XII grossly intact. ABSENT: motor sensory deficit Psychiatric exam: PRESENT: appropriate affect, normal mood. ABSENT: homicidal ideation, suicidal ideation Skin exam: PRESENT: dry, intact, warm. ABSENT: cyanosis, rash Results Laboratory Results: 07/29/18 04:50 07/29/18 04:50 07/29/18 07/29/18 07/29/18 04:50 04:50 04:50 WBC 29.5 H RBC 2.10 L Hgb 7.1 L Hct 21.9 L MCV 104 H MCH 33.7 H MCHC 32.4 RDW 18.0 H Plt Count 1038 H* Sodium 130.2 L Potassium 5.1 H Chloride 92 L Carbon Dioxide 31 H Anion Gap 7 BUN 33 H Creatinine 0.90 Est GFR ( Amer) > 60 Est GFR (Non-Af Amer) > 60 Glucose 89 Calcium 7.9 L Blood Type O POSITIVE Antibody Screen NEGATIVE 07/20/18 07/21/18 07/27/18 13:46 06:13 19:20 CK-MB (CK-2) 1.26 Troponin I < 0.012 < 0.012 NT-Pro-B Natriuret Pep 1090 H Impressions: Chest X-Ray 07/20/18 13:09 IMPRESSION: Right lung pneumonia versus mass. Assessment & Plan - Diagnosis (1) Sepsis Qualifiers: Sepsis type: sepsis due to unspecified organism Qualified Code(s): A41.9 - Sepsis, unspecified organism Is this a current diagnosis for this admission?: Yes Plan: Resolved. Secondary to pneumonia, present on admission, as evidenced by leukocytosis, tachycardia and tachypnea. CXR demonstrates RML PNA Blood cultures have no growth The patient was empirically treated with IV Rocephin and azithromycin for treatment of a community-acquired pneumonia; antibiotics discontinued on day #7 as patient has been afebrile with clinical improvement >48 hours. 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 No indications for continued antibiotics at this time. (2) Hyperkalemia Is this a current diagnosis for this admission?: Yes Plan: Slight improvement today. Unclear etiology; possibly related to thrombocytopenia, lymphocytosis, or Lovenox use. K 5.2-> 4.9-> 6.3-> 6.9-> 5.5-> 5.1 Attempts to correct with IV calcium gluconate, D5, Insulin, Bicarb, albuterol nebs, and lactulose without effect. Continue PO Veltassa; dosing by nephrology. Continuous cardiac telemetry; discussed with nursing, monitor closely Nephrology is consulted; appreciate Dr. Levi's evaluation and recommendations. Spoke w/ Dr. Levi and Dr. Maddox. Likely pseudo-hyperkalemia 2/2 hrombocytopenia/lymphocytosis. Jakafi discontinued by Heme/Onc; continue Hydrea 1000 mg BID. At discharge, patient is to stop Hydrea and resume Jakafi. Bicarb drip per Nephrology; likely transition to p.o. Bicarb soon. (3) Leukocytosis Qualifiers: Leukocytosis type: other Qualified Code(s): D72.828 - Other elevated white blood cell count Is this a current diagnosis for this admission?: Yes Plan: Slight improvement today; 20.4-> 50.7-> 36.4-> 29.5 Acute phase reaction to PNA in setting of primary thrombocytosis and IV steroids for COPD exacerbation. Discussed with HEME/ONC Flow cytometry pending. Started on Hydrea this admission; see above. Continue to monitor. Remaining plan as above. (4) Thrombocytosis Is this a current diagnosis for this admission?: Yes Plan: Slight improvement today; 1104-> 676-> 1292-> 1188-> 1038 History of essential thrombocytosis Aspirin 81mg PO daily Management per Heme/Onc Remaining plan as above. (5) Anemia Qualifiers: Anemia type: other cause Other causes of anemia: antineoplastic chemotherapy Qualified Code(s): D64.81 - Anemia due to antineoplastic chemotherapy; T45.1X5A - Adverse effect of antineoplastic and immunosuppressive drugs, initial encounter Is this a current diagnosis for this admission?: Yes Plan: Overall downward trend; 9.0-> 7.0-> 7.1 Chronic; likely myeloproliferative disorder as patient has chronic thromboc ytopenia now with leukocytosis. No indications of active bleeding. Worsened after starting Hydrea while inpatient. Transfuse 1 unit PRBC today per Heme/Onc. Will continue to monitor. (6) Pneumonia Qualifiers: Pneumonia type: due to unspecified organism Laterality: right Lung location: middle lobe of lung Qualified Code(s): J18.1 - Lobar pneumonia, unspecified organism Is this a current diagnosis for this admission?: Yes Plan: Resolved. Community-acquired pneumonia Lobar infiltrate in RML Blood cultures negative Sputum culture ordered Empiric antibiotic coverage with Rocephin and azithromycin; has completed a 7- day course of therapy. (7) Hypoxia Is this a current diagnosis for this admission?: Yes Plan: Resolved; now maintaining oxygen saturations while ambulatory on room air. Secondary to PNA and COPD exacerbation CXR demonstrates chronic changes associated with emphysema/COPD as well as RML PNA Supplemental oxygen via nasal cannula for SPO2>88% Continue p.o. prednisone today. Serevent, Spiriva, nebulizers as needed. Encourage ambulation and use of IS - Time Time Spent with patient: Less than 15 minutes Medications reviewed and adjusted accordingly: Yes Anticipated discharge: Home Within: within 48 hours
--- NOTE | 2018-07-29 18:56 | PDOC PROGRESS REPORT ---
Subjective Progress Note for:: 07/29/18 Subjective:: Patient is doing very well without any new complaints. He just wants to go home. His urine output and bowel movements are almost normal. Denies any other complaints. Reason For Visit: PNEUMONIA Physical Exam Vital Signs: Temp Pulse Resp BP Pulse Ox 99.1 F 98 18 122/58 L 91 L 07/29/18 14:32 07/29/18 14:32 07/29/18 14:32 07/29/18 14:32 07/29/18 14:32 Intake & Output 07/28/18 07/29/18 07/30/18 06:59 06:59 06:59 Intake Total 1508 3446 920 Output Total 200 Balance 1308 3446 920 Weight 51.2 kg 51.2 kg Exam: General appearance: PRESENT: no acute distress, cooperative, well-developed, well-nourished Head exam: PRESENT: atraumatic, normocephalic Eye exam: PRESENT: conjunctiva pink, PERRLA. ABSENT: scleral icterus Neck exam: ABSENT: JVD Respiratory exam: PRESENT: Normal breath sounds. ABSENT: crackles, rales, rhonchi, unlabored, wheezes Cardiovascular exam: PRESENT: Regular rate rhythm -+S1, +S2. ABSENT: diastolic murmur, systolic murmur GI/Abdominal exam: PRESENT: normal bowel sounds, soft. ABSENT: guarding, mass, tenderness Extremities exam: ABSENT: No edema Neurological exam: PRESENT: alert, awake, oriented to person, place and time. Skin exam: PRESENT: dry, warm, Results Laboratory Results: 07/29/18 04:50 07/29/18 04:50 07/29/18 07/29/18 07/29/18 04:50 04:50 04:50 WBC 29.5 H RBC 2.10 L Hgb 7.1 L Hct 21.9 L MCV 104 H MCH 33.7 H MCHC 32.4 RDW 18.0 H Plt Count 1038 H* Sodium 130.2 L Potassium 5.1 H Chloride 92 L Carbon Dioxide 31 H Anion Gap 7 BUN 33 H Creatinine 0.90 Est GFR ( Amer) > 60 Est GFR (Non-Af Amer) > 60 Glucose 89 Calcium 7.9 L Blood Type O POSITIVE Antibody Screen NEGATIVE 07/20/18 07/21/18 07/27/18 13:46 06:13 19:20 CK-MB (CK-2) 1.26 Troponin I < 0.012 < 0.012 NT-Pro-B Natriuret Pep 1090 H Impressions: Chest X-Ray 07/20/18 13:09 IMPRESSION: Right lung pneumonia versus mass. Assessment & Plan - Diagnosis (1) Hyperkalemia Is this a current diagnosis for this admission?: Yes Plan: Multifactorial but mainly due to thrombocytosis and leukocytosis with contribution of medication including previously given Lovenox and potassium intake. Dr. Maddox has reinitiated Hydrea for the patient. I have been giving the patient on sodium bicarbonate drip. Since the patient's kidney function is within normal limits and is deemed to be not the cause of the patient's hyperkalemia dialysis will be the last resort for this hyperkalemia if it shows cardiac toxicity. Patient's potassium level has significantly improved with combination of the bicarb drip and the hydroxyurea. Will finish the last bag of his bicarb drip and then switched to oral sodium bicarbonate. I think he needs to go home with the sodium bicarbonate unless his white count and platelet counts are normal. (2) Pneumonia Qualifiers: Pneumonia type: due to unspecified organism Laterality: right Lung location: middle lobe of lung Qualified Code(s): J18.1 - Lobar pneumonia, unspecified organism Is this a current diagnosis for this admission?: Yes (3) Anemia Qualifiers: Anemia type: other cause Other causes of anemia: antineoplastic chemotherapy Qualified Code(s): D64.81 - Anemia due to antineoplastic chemotherapy; T45.1X5A - Adverse effect of antineoplastic and immunosuppressive drugs, initial encounter Is this a current diagnosis for this admission?: Yes Plan: His hemoglobin has been decreased but stable for the last 3 days. (4) Thrombocytosis Is this a current diagnosis for this admission?: Yes Plan: Dr. Maddox, vibration technician on board and managing this. (5) Leukocytosis Qualifiers: Leukocytosis type: other Qualified Code(s): D72.828 - Other elevated white blood cell count Is this a current diagnosis for this admission?: Yes Plan: Defer to Dr. Maddox. - Notes Notes: From nephrology standpoint I think patient can be discharged home tomorrow if he remains to be stable. - Time Time with patient: 15-25 minutes
[2018-07-29] MEDS: SODIUM BICARBONATE 650 MG TABLET PO SCH (21:23)
[2018-07-30] MEDS: GABAPENTIN 300 MG CAPSULE PO SCH ×2 (00:09→05:10)
[2018-07-30 05:07] LABS: HEMATOCRIT 26.5 % (37.9-51.0); HEMOGLOBIN 8.7 g/dL (13.5-17.0); MEAN CORPUSCULAR HEMOGLOBIN 33.3 pg (27.0-33.4); MEAN CORPUSCULAR HGB CONC 32.8 g/dL (32.0-36.0); MEAN CORPUSCULAR VOLUME 102 fl (80-97); RED BLOOD COUNT 2.61 10^6/uL (4.35-5.55); RED CELL DISTRIBUTION WIDTH 19.4 % (11.5-14.0); WHITE BLOOD COUNT 27.9 10^3/uL (4.0-10.5)
[2018-07-30] MEDS: SALMETEROL XINAFOATE DISKUS 50 MCG/1 DOSE 28 DOSE IH SCH (05:10)
[2018-07-30 05:18] LABS: ANION GAP 7 (5-19); BLOOD UREA NITROGEN 33 mg/dL (7-20); CALCIUM 8.4 mg/dL (8.4-10.2); CARBON DIOXIDE 33 mmol/L (22-30); CHLORIDE 93 mmol/L (98-107); GLUCOSE 76 mg/dL (75-110); POTASSIUM 5.2 mmol/L (3.6-5.0); SODIUM 132.5 mmol/L (137-145)
[2018-07-30 05:43] LABS: PLATELET COUNT 1228 10^3/uL (150-450)
[2018-07-30] MEDS: IPRATROPIUM/ALBUTEROL 0.5-2.5 MG/3 ML AMPUL NEB SCH (07:56)
[2018-07-30] MEDS: PREDNISONE 20 MG TABLET PO SCH (10:20)
[2018-07-30] MEDS: SODIUM BICARBONATE 650 MG TABLET PO SCH (10:20)
[2018-07-30] MEDS: ASPIRIN 81 MG TABLET, ENT COATED PO SCH (10:20)
[2018-07-30] MEDS: GUAIFENESIN 600 MG TABLET.SA PO SCH (10:21)
[2018-07-30] MEDS: NICOTINE 14 MG/24 HR PATCH.TD24 TD SCH (10:27)
[2018-07-30] MEDS: TIOTROPIUM BROMIDE DPI 5 CAP/KIT (18 MCG/CAP) IH SCH (10:29)
[2018-07-30] MEDS: FONDAPARINUX SODIUM INJ 2.5 MG/0.5 ML DISP.SYRIN SUBCUT SCH (10:30)
[2018-07-30] MEDS: HYDROXYUREA 500 MG CAPSULE PO SCH (10:31)
[2018-07-30] MEDS: MEGESTROL ACETATE 20 MG TABLET PO SCH (10:31)
[2018-07-30 11:37] VITALS: BP 122/58
--- NOTE | 2018-07-30 12:11 | PDOC PROGRESS REPORT ---
Subjective Progress Note for:: 07/30/18 Subjective:: Patient looks better today, ready for discharge Reason For Visit: PNEUMONIA Physical Exam Vital Signs: Temp Pulse Resp BP Pulse Ox 98.3 F 98 16 122/58 L 94 07/30/18 11:30 07/30/18 11:30 07/30/18 11:30 07/30/18 11:30 07/30/18 11:30 Intake & Output 07/29/18 07/30/18 07/31/18 06:59 06:59 06:59 Intake Total 3442019 Balance 3442019 Weight 51.2 kg 44.9 kg General appearance: PRESENT: no acute distress, well-developed, well-nourished Head exam: PRESENT: atraumatic, normocephalic Eye exam: PRESENT: conjunctiva pink, EOMI, PERRLA. ABSENT: scleral icterus Ear exam: PRESENT: normal external ear exam Mouth exam: PRESENT: moist, tongue midline Neck exam: ABSENT: carotid bruit, JVD, lymphadenopathy, thyromegaly Respiratory exam: PRESENT: clear to auscultation erinn. ABSENT: rales, rhonchi, wheezes Cardiovascular exam: PRESENT: RRR. ABSENT: diastolic murmur, rubs, systolic murmur Pulses: PRESENT: normal dorsalis pedis pul Vascular exam: PRESENT: normal capillary refill GI/Abdominal exam: PRESENT: normal bowel sounds, soft. ABSENT: distended, guarding, mass, organolmegaly, rebound, tenderness Rectal exam: PRESENT: deferred Extremities exam: PRESENT: full ROM. ABSENT: calf tenderness, clubbing, pedal edema Neurological exam: PRESENT: alert, awake, oriented to person, oriented to place, oriented to time, oriented to situation, CN II-XII grossly intact. ABSENT: motor sensory deficit Psychiatric exam: PRESENT: appropriate affect, normal mood. ABSENT: homicidal ideation, suicidal ideation Skin exam: PRESENT: dry, intact, warm. ABSENT: cyanosis, rash Results Laboratory Results: 07/30/18 04:27 07/30/18 04:27 07/30/18 07/30/18 04:27 04:27 WBC 27.9 H RBC 2.61 L Hgb 8.7 L Hct 26.5 L MCV 102 H MCH 33.3 MCHC 32.8 RDW 19.4 H Plt Count 1228 H* Sodium 132.5 L Potassium 5.2 H Chloride 93 L Carbon Dioxide 33 H Anion Gap 7 BUN 33 H Creatinine 0.81 Est GFR ( Amer) > 60 Est GFR (Non-Af Amer) > 60 Glucose 76 Calcium 8.4 07/20/18 07/21/18 07/27/18 13:46 06:13 19:20 CK-MB (CK-2) 1.26 Troponin I < 0.012 < 0.012 NT-Pro-B Natriuret Pep 1090 H Impressions: Chest X-Ray 07/20/18 13:09 IMPRESSION: Right lung pneumonia versus mass. Assessment & Plan - Diagnosis (1) Pneumonia Qualifiers: Pneumonia type: due to unspecified organism Laterality: right Lung location: middle lobe of lung Qualified Code(s): J18.1 - Lobar pneumonia, unspecified organism Is this a current diagnosis for this admission?: Yes Plan: Resolved (2) Thrombocytosis Is this a current diagnosis for this admission?: Yes Plan: Restart jakafi discontinue Hydrea follow closely as an outpatient (3) Anemia Qualifiers: Anemia type: other cause Other causes of anemia: antineoplastic chemotherapy Qualified Code(s): D64.81 - Anemia due to antineoplastic livia motherapy; T45.1X5A - Adverse effect of antineoplastic and immunosuppressive drugs, initial encounter Is this a current diagnosis for this admission?: Yes Plan: Secondary to Hydrea, appropriate increase in hemoglobin posttransfusion will follow as an outpatient
--- NOTE | 2018-07-30 12:23 | PDOC DISCHARGE SUMMARY ---
General - Admit/Disc Date/PCP Admission Date/Primary Care Provider: 07/20/18 15:57 KHADRA MADDOX MD Discharge Date: 07/30/18 - Discharge Diagnosis (1) Sepsis Is this a current diagnosis for this admission?: Yes Summary: Resolved. Secondary to pneumonia, present on admission, as evidenced by leukocytosis, tachycardia and tachypnea. CXR demonstrates RML PNA Blood cultures have no growth The patient was empirically treated with IV Rocephin and azithromycin for treatment of a community-acquired pneumonia. He received a full course of antibiotic therapy while inpatient. No indication for continued antibiotic therapy. (2) Hyperkalemia Is this a current diagnosis for this admission?: Yes Summary: Improved; likely related to thrombocytopenia and leukocytosis. K 5.2-> 4.9-> 6.3-> 6.9-> 5.5-> 5.1-> 5.2 The patient was closely monitored on continuous cardiac telemetry; remained in sinus rhythm without abnormal findings. Attempts to correct hyperkalemia with IV calcium gluconate, D5, insulin, albuterol nebs, lactulose, and Veltassa were ineffective. Unfortunately, Kayexalate was unavailable due to nationwide backorder. Nephrology was consulted; patient was placed on a bicarb drip by Dr. Levi. He is potassium responded well and trended down to his baseline of 5.2. Patient was transitioned to p.o. sodium bicarb to continue at discharge. Patient was educated on the importance of hydration, signs of hypo- /hyperkalemia, and foods to avoid. This information was also discussed briefly with the patient's daughter. Recommend follow-up BMP in 3-5 days. (3) Leukocytosis Is this a current diagnosis for this admission?: Yes Summary: Improved; 20.4-> 50.7-> 36.4-> 29.5 Acute phase reaction to PNA in setting of primary thrombocytosis and IV steroids for COPD exacerbation. Flow cytometry is pending. Heme/oncology was consulted; initially his Jakifi was continued continued. However, as he developed hyperkalemia, more aggressive moderation was required. Patient was briefly placed on Hydrea with subsequent downward trend in his leukocytosis and thrombocytosis. Dr. Maddox has recommended that the patient discontinue Hydrea and return to Jakifi at discharge. Patient is to follow-up with Dr. Maddox as scheduled next week. (4) Thrombocytosis Is this a current diagnosis for this admission?: Yes Summary: Remains elevated. Recommend continuing daily aspirin therapy. Patient is encouraged to maintain adequate p.o. fluids. Heme/oncology was consulted; initially his Jakifi was continued continued. However, as he developed hyperkalemia, more aggressive moderation was required. Patient was briefly placed on Hydrea with subsequent downward trend in his leukocytosis and thrombocytosis. Dr. Maddox has recommended that the patient discontinue Hydrea and return to Jakifi at discharge. Patient is to follow-up with Dr. Maddox as scheduled next week. (5) Anemia Is this a current diagnosis for this admission?: Yes Summary: Secondary to myeloproliferative disorder and patient with chronic thrombocytopenia. Worsened after transition to Hydrea for control of leukocytosis and thrombocytosis. Patient is now status post 1 unit packed red blood cells. Hemoglobin is appropriately improved to 8.7 following transfusion. Hematology/oncology was consulted; patient is to follow-up with Dr. Maddox as scheduled in 1 week. (6) Pneumonia Is this a current diagnosis for this admission?: Yes Summary: Resolved. Community-acquired pneumonia Lobar infiltrate in RML Blood cultures negative He completed a 7-day course of Rocephin and azithromycin. (7) COPD exacerbation Is this a current diagnosis for this admission?: Yes Summary: Secondary to RML pneumonia. The patient was initially supported with supplemental oxygen, IV steroids, as needed and scheduled nebulizer treatments. His exacerbation and pneumonia have subsequently resolved and he is now maintaining oxygen saturations while ambulatory on room air. He is discharged with Spiriva and Symbicort. He is strongly encouraged to discontinue smoking. (8) Hypoxia Is this a current diagnosis for this admission?: Yes Summary: Resolved; now maintaining oxygen saturations while ambulatory on room air. Secondary to PNA and COPD exacerbation CXR demonstrates chronic changes associated with emphysema/COPD as well as RML PNA Evaluation management as described above. - Additional Information Resuscitation Status: Full Code Discharge Diet: Other (Comments) Discharge Activity: Activity As Tolerated, Balance Activity w/Rest Prescriptions: Nicotine [Nicoderm 14 mg/24 Hr Transdermal Patch] 1 each TD DAILY #30 patch.td24 Salmeterol Xinafoate [Serevent Diskus 50 Mcg/Dose 28 Dose/Diskus] 50 mcg IH Q12A #1 disk Sodium Bicarbonate [Sodium Bicarbonate 650 mg Tablet] 1,300 mg PO Q12 #120 tablet Tiotropium Lupton [Spiriva Handihaler 5 Cap/Kit (18 Mcg/Cap)] 1 cap IH DAILY #1 kit Home Medications: Gabapentin [Neurontin 300 mg Capsule] 300 mg PO Q6 07/20/18 Naproxen Sodium [Aleve] 220 mg PO Q12HP PRN 07/20/18 Ruxolitinib Phosphate [Jakafi] 10 mg PO BID 07/20/18 Acetaminophen [Tylenol 325 mg Tablet] 975 mg PO Q6HP PRN tablet 07/30/18 Aspirin [Ecotrin 81 mg EC Tablet] 81 mg PO DAILY tabec 07/30/18 Nicotine [Nicoderm 14 mg/24 Hr Transdermal Patch] 1 each TD DAILY #30 patch.td24 07/30/18 Salmeterol Xinafoate [Serevent Diskus 50 Mcg/Dose 28 Dose/Diskus] 50 mcg IH Q12A #1 disk 07/30/18 Sodium Bicarbonate [Sodium Bicarbonate 650 mg Tablet] 1,300 mg PO Q12 #120 tablet 07/30/18 Tiotropium Lupton [Spiriva Handihaler 5 Cap/Kit (18 Mcg/Cap)] 1 cap IH DAILY #1 kit 07/30/18 History of Present Illness History of Present Illness: Per H&P by Alexsandra Guerrero NP: MIRELA XIE is a 77 year old male with a PMH of thrombocytosis (followed by Dr. Mir), chronic back pain and DJD. Who presented to [facility] with a productive cough and SOB x 4 days. The patient denies any recent ill contacts. States he took Mucinex and Aleve for symptoms, but they offered no relief. Patient's daughter urged him to come to the emergency department today. Upon arrival to the emergency department she is vital signs were BP 132/71 HR 101 T 98.6 SPO2 84% RA. CXR reveals RML infiltrate. Laboratory studies indicative of leukocytosis (WBC 20), mild anemia and significant thrombocytosis (platelets >1100). Additionally, there is mild hyponatremia and hyperkalemia. All other laboratory studies relatively benign, including cardiac enzymes. EKG demonstrates sinus tachycardia. Upon assessment, the patient is resting comfortably in bed on supplemental oxygen. He is alert and oriented, able to answer all questions appropriately and without pause. Wheezing can be auscultated in all lung cedillo bilaterally. There is no evidence of central or peripheral cyanosis. Plan to admit to hospitalist service for IV antibiotic therapy. Physical Exam Vital Signs: Temp Pulse Resp BP Pulse Ox 98.3 F 98 16 122/58 L 94 07/30/18 11:30 07/30/18 11:30 07/30/18 11:30 07/30/18 11:30 07/30/18 11:30 Intake & Output 07/29/18 07/30/18 07/31/18 06:59 06:59 06:59 Intake Total 3446 2019 Balance 3442019 Weight 51.2 kg 44.9 kg General appearance: PRESENT: no acute distress, cooperative, thin, well- developed Head exam: PRESENT: atraumatic, normocephalic Eye exam: PRESENT: conjunctiva pink, EOMI, PERRLA. ABSENT: scleral icterus Ear exam: PRESENT: normal external ear exam Mouth exam: PRESENT: moist, tongue midline Neck exam: ABSENT: carotid bruit, JVD, lymphadenopathy, thyromegaly Respiratory exam: PRESENT: clear to auscultation erinn, symmetrical, unlabored. ABSENT: rales, rhonchi, wheezes Cardiovascular exam: PRESENT: RRR. ABSENT: diastolic murmur, rubs, systolic murmur Pulses: PRESENT: normal dorsalis pedis pul Vascular exam: PRESENT: normal capillary refill GI/Abdominal exam: PRESENT: normal bowel sounds, soft. ABSENT: distended, guarding, mass, organolmegaly, rebound, tenderness Rectal exam: PRESENT: deferred Extremities exam: PRESENT: full ROM. ABSENT: calf tenderness, clubbing, pedal edema Neurological exam: PRESENT: alert, awake, oriented to person, oriented to place, oriented to time, oriented to situation, CN II-XII grossly intact. ABSENT: motor sensory deficit Psychiatric exam: PRESENT: appropriate affect, normal mood. ABSENT: homicidal ideation, suicidal ideation Skin exam: PRESENT: dry, intact, warm. ABSENT: cyanosis, rash Results Laboratory Results: 07/30/18 04:27 07/30/18 04:27 07/30/18 07/30/18 04:27 04:27 WBC 27.9 H RBC 2.61 L Hgb 8.7 L Hct 26.5 L MCV 102 H MCH 33.3 MCHC 32.8 RDW 19.4 H Plt Count 1228 H* Sodium 132.5 L Potassium 5.2 H Chloride 93 L Carbon Dioxide 33 H Anion Gap 7 BUN 33 H Creatinine 0.81 Est GFR ( Amer) > 60 Est GFR (Non-Af Amer) > 60 Glucose 76 Calcium 8.4 07/20/18 07/21/18 07/27/18 13:46 06:13 19:20 CK-MB (CK-2) 1.26 Troponin I < 0.012 < 0.012 NT-Pro-B Natriuret Pep 1090 H Impressions: Chest X-Ray 07/20/18 13:09 IMPRESSION: Right lung pneumonia versus mass. Qualifiers - * PATIENT BEING DISCHARGED WITH ANY OF THE FOLLOWING DIAGNOSIS: No Plan Discharge Plan: Discharge to home with self-care. Follow-up with Dr. Vivas as scheduled on 08/02/18. Recommend follow-up BMP at this visit to assess potassium and need for continued sodium bicarb. Follow-up with Dr. Maddox as scheduled on 08/08/18. Follow-up with Dr. Levi as needed. Return to the emergency department as needed for concerning symptoms.
== END 2018-07-30 12:45 | disposition home or self-care (01) | DRG 871 ==
LOC: ER 12:14 → OBSVTOIN 15:57 → EH 15:57 → INTOOBSV 15:57 → 4N 07-21 07:00
PROVIDERS: ADMIT Hospitalist; ATTEND Hospitalist
PROC: 30233N1 Transfusion of Nonautologous Red Blood Cells into Peripheral Vein, Percutaneous Approach (ICD-10-PCS; principal; 2018-07-29)
DX: A41.9 Sepsis, unspecified organism (principal); J18.1 Lobar pneumonia, unspecified organism; J44.1 Chronic obstructive pulmonary disease with (acute) exacerbation; J44.0 Chronic obstructive pulmonary disease with (acute) lower respiratory infection; E87.1 Hypo-osmolality and hyponatremia; C94.6 Myelodysplastic disease, not elsewhere classified; D47.3 Essential (hemorrhagic) thrombocythemia; D63.8 Anemia in other chronic diseases classified elsewhere; E87.5 Hyperkalemia; F17.210 Nicotine dependence, cigarettes, uncomplicated; M47.9 Spondylosis, unspecified; M54.9 Dorsalgia, unspecified; G89.29 Other chronic pain; R00.0 Tachycardia, unspecified; Z83.3 Family history of diabetes mellitus; Z82.49 Family history of ischemic heart disease and other diseases of the circulatory system
CPT/HCPCS: 36415; 36430; 71045; 80048; 80053; 82553; 83605; 83615; 83735; 83880; 84100; 84132; 84484; 85025; 85027; 86850; 86900; 86901; 86920; 87040; 88184; 88185; 93005; 93010; 94060; 94640; 94667; 94799; 96365; 96367; 99284; G0378; J0456; J0610; J0696; J1650; J1652; J1815; J1940; J2920; J2930; J3490; J7030; J7060; J7512; J7620; P9016